=== PATIENT | female | born 1995 | race Caucasian/White ===

== ENCOUNTER 2017-06-28 23:27 | Outpatient (CLI) | payer OTHER ==
[~2017-06-28] VITALS: Ht 165.1 cm; Wt 65.0 kg
[~2017-06-28 23:27] MED LIST: BCPILLS PO
[2017-06-29] MEDS ORDERED: PRENTAB26 PO (00:12)
[2017-06-29 00:13] VITALS: Ht 165.1 cm; Wt 65.0 kg
--- NOTE | 2017-06-30 12:59 | EDITING REQUIRED CODING QUERY ---
DIAGNOSIS NEEDED To promote full compliance with coding requirements relating to patient care, physician participation is requested in all cases of computer language coder uncertainty. Please assist us with the question(s) below: Coding Question: The patient received care in labor and delivery on 06/28/17 as noted within the record. Please document the diagnosis that is being addressed by the medication/treatment. Provider Response: DIAGNOSIS: rule out ruptured membrtanes Thank you for your assistance, Kita Gonzalez - Data Entry Associate
== END 2017-06-29 00:28 | disposition home or self-care (01) ==
LOC: C.LD 23:27 → C.OPB 23:27
PROVIDERS: ATTEND Obstetrics & Gynecology
DX: Z34.83 Encounter for supervision of other normal pregnancy, third trimester (principal); Z3A.36 36 weeks gestation of pregnancy

== ENCOUNTER 2017-07-23 00:20 | Inpatient (IN) | payer OTHER ==
[~2017-07-23] VITALS: Ht 165.1 cm; Wt 67.5 kg
[~2017-07-23 00:20] MED LIST changes: -BCPILLS PO; +PRENTAB26 PO
[2017-07-24] MEDS ORDERED: LACTATED RINGER'S 1000ML 500 ML IV PRN ×2 (17:11→22:26)
[2017-07-24] MEDS ORDERED: LACTATED RINGER'S 1000ML 1,000 ML IV PRN (17:11)
[2017-07-24] MEDS ORDERED: OXYTOCIN 30 UNITS/500ML NSS IV PRN (17:15)
[2017-07-24 18:57] LABS: HEMATOCRIT 31.9 % (37-47); MEAN CELL VOLUME 84.4 fL (80-100); MEAN CORPUSCULAR HGB CONC 33.2 g/dl (32-36); MEAN PLATELET VOLUME 10.6 fL (7.4-10.4); PLATELET COUNT 218 K/uL (130-400); RED BLOOD COUNT 3.78 M/uL (4.2-5.4); WHITE BLOOD COUNT 9.42 K/uL (4.8-10.8)
[2017-07-24] MEDS: LACTATED RINGER'S 1000ML 1,000 ML IV SCH ×2 (19:12→22:23)
[2017-07-24 20:01] VITALS: Ht 165.1 cm; Wt 67.5 kg
[2017-07-24] MEDS ORDERED: FENTANYL CITRATE INJ 50 MCG/1 ML 2 ML VIAL ONE (21:15)
[2017-07-24] MEDS ORDERED: EpHEDrine SULFATE INJ 50 MG/ML AMP ONE (21:15)
[2017-07-24] MEDS ORDERED: BUPIVACAINE 0.25% 30 ML VIAL ONE (21:15)
[2017-07-24] MEDS ORDERED: FENTANYL 2MCG/ML ROPIV 1.25MG/ML 100ML BAG EPI ONE (21:15)
[2017-07-24] MEDS ORDERED: NALOXONE HCL INJ 1 MG in SODIUM CHLORIDE 0.9% 1000ML 1,000 ML IV PRN (22:26)
[2017-07-24] MEDS ORDERED: FENTANYL 2MCG/ML ROPIV 1.25MG/ML 100ML BAG EPI PRN (22:30)
[2017-07-24] MEDS ORDERED: DiphenhydrAMINE HCL 50 MG/ML VIAL IV PRN (22:30)
[2017-07-24] MEDS ORDERED: NALOXONE HCL INJ 0.4 MG/1 ML VIAL/CARP IV PRN (22:30)
[2017-07-24] MEDS ORDERED: EpHEDrine SULFATE INJ 50 MG/ML AMP IV PRN (22:30)
[2017-07-24] MEDS ORDERED: NALBUPHINE HCL INJ 10 MG/ML AMP IV PRN (22:30)
[2017-07-25] MEDS ORDERED: OXYCODONE/ACETAMINOPHEN 5-325 TAB PO PRN (01:15)
[2017-07-25] MEDS ORDERED: SUPERCREAM 0.870 % 15GM JAR EXT PRN (01:15)
[2017-07-25] MEDS ORDERED: ACETAMINOPHEN 325 MG TAB PO PRN (01:15)
[2017-07-25] MEDS ORDERED: HYDROCORTISONE ACETATE 25 MG SUPP PR PRN (01:15)
[2017-07-25] MEDS ORDERED: ACETAMINOPHEN/CODEINE 300/30MG TAB PO PRN ×2 (01:15)
[2017-07-25] MEDS ORDERED: MISOPROSTOL 200 MCG TAB PR SCH (01:15)
[2017-07-25] MEDS ORDERED: OXYTOCIN 30 UNITS/500ML NSS IV PRN (01:15)
[2017-07-25] MEDS ORDERED: LANOLIN OINT EXT PRN ×2 (01:15)
[2017-07-25] MEDS ORDERED: BENZOCAINE 20% AER SPR 82.5 GM CAN EXT PRN (01:15)
--- NOTE | 2017-07-25 03:02 | Anesthesia Procedure Note ---
Anesthesia Epidural Removal Nt Date & Time Jul 25, 2017 at 03:01 Vital Signs Pain Intensity: 9.0 Notes Mental Status: alert / awake / arousable, participated in evaluation Nausea / Vomiting: adequately controlled Pain: adequately controlled Airway Patency, RR, SpO2: stable & adequate BP & HR: stable & adequate Hydration State: stable & adequate Neuraxial Anesthesia: was administered Anesthetic Complications: no major complications apparent, pt satisfied with anesthetic care Epidural: removed without complications, with tip intact
[2017-07-25 04:45] VITALS: BP 92/54; PULSE 61; TEMP 36.7
--- NOTE | 2017-07-25 07:09 | DELIVERY SUMMARY ---
DATE OF OPERATION: 07/25/2017 The patient delivered a live infant female in occiput anterior presentation with left hand compound presentation. There was no nuchal cord. was delivered spontaneously. Infant was placed on mother's abdomen. Cord was clamped and cut after 1 minute of delayed cord clamping. Cord blood was obtained. Placenta was spontaneously delivered. Inspection of the placenta showed a 3-vessel cord. Placenta appeared grossly normal. Inspection of the perineum showed a first-degree midline laceration which was repaired with 3-0 Vicryl. ESTIMATED BLOOD LOSS: 500 mL. Rectal exam post repair showed good sphincter tone. There are no sutures palpated in the rectum. All instruments are removed from the vagina and accounted for x2. Baby's weight is pending, Apgars 8 and 9. Baby and mother are doing well in recovery. I attest to the content of the Intraoperative Record and any orders documented therein. Any exception s are noted below.
--- NOTE | 2017-07-25 07:35 | HISTORY & PHYSICAL EXAMINATION ---
DATE OF ADMISSION: 07/24/2017 CHIEF COMPLAINT: Induction for poor testing. HISTORY OF PRESENT ILLNESS: This is a 21-year-old G2, P1, due date 07/23/2017 making her 40 weeks and 1 day on 07/24/2017. The patient was seen in office for routine care because she was post-EDC. She underwent NST and HUGO. HUGO was 13.9. Her NST was reactive until the end of the NST where the patient experienced deceleration to the 90s. Biophysical profile was 6/8. There was no bleeding. Decision was therefore made to send the patient to our labor and delivery for induction of labor. While in labor and delivery she had no shortness of breath, no chills, no fever, no rupture of membranes. NST repeated on labor and delivery was category 1. She was 4 cm, 50% and -3. I discussed the new NST with the patient and we offered her induction and she agreed to undergo labor induction. Course has been unremarkable until visit on 07/24/2013. LABS: Blood type A positive, antibody negative, rubella immune, GBS negative. PAST MEDICAL HISTORY: 1. History of genital herpes started on 36 weeks. 2. The patient is a smoker. 3. History of strabismus. PAST SURGICAL HISTORY: None. ALLERGIES: No known drug allergies. SOCIAL HISTORY: Smoker. Nonalcohol user, nondrug user. FAMILY HISTORY: Noncontributory. ONLINE SERVICES MANAGER HISTORY: The patient delivered a live male in July 2014. weighed 7 pounds 8 ounces. PHYSICAL EXAMINATION: GENERAL: Well-developed, well-nourished white female in no acute distress. HEART: S1, S2, regular rhythm and rate. LUNGS: Clear to auscultation bilaterally. ABDOMEN: Gravid. PELVIC EXAM: 4 cm, 50% effaced, and -3. Internal vaginal exam shows cephalic presentation. EXTREMITIES: No cyanosis, clubbing or edema. ASSESSMENT AND PLAN: 21-year-old G2, P1 at 40+ weeks for testing. The patient is offered induction and has agreed. Plan is to start induction of labor for reasons described above.
[2017-07-25 07:55] VITALS: BP 100/62; PULSE 59; TEMP 36.9; O2SAT 98
[2017-07-25] MEDS: DOCUSATE SODIUM 100 MG CAP PO SCH ×2 (08:24→21:06)
[2017-07-25] MEDS: FERROUS SULFATE 325 MG TAB PO SCH (08:24)
[2017-07-25] MEDS: PRENATAL VITAMIN TAB PO SCH (08:24)
[2017-07-25 11:20] VITALS: BP 111/74; PULSE 61; TEMP 37
[2017-07-25 16:00] VITALS: BP 100/63; PULSE 58; TEMP 37
[2017-07-25 19:45] VITALS: PULSE 66; TEMP 36.6
[2017-07-25] MEDS: IBUPROFEN 600 MG TAB PO PRN (21:14)
[2017-07-26 00:10] VITALS: BP 109/64; PULSE 58; TEMP 37
--- NOTE | 2017-07-26 08:18 | OB/GYN Progress Note ---
SORTING AND FOLDING SUPERVISOR Progress Note Date of Service: Jul 26, 2017. Patient is seen and examined. She feels well, no complaints. Likes to go home Ambulating without dizziness Voiding without difficulty Tolerating regular diet with out N&V Bleeding is minimal No fever/ chills/ CP/ SOB/ N&V/ Leg pain Bottle feeding without problems Date Time Temp Pulse Resp B/P (MAP) Pulse Ox O2 Delivery O2 Flow Rate FiO2 07/26/17 00:10 37.0 58 16 109/64 (79) Room Air 07/26/17 00:10 Room Air 07/25/17 19:45 36.6 66 16 07/25/17 16:00 37.0 58 16 100/63 (75) Room Air 07/25/17 16:00 Room Air 07/25/17 11:20 37.0 61 20 111/74 (86) Room Air Test 06/29/17 00:23 07/24/17 18:02 Amniotic Fluid Protein NEG White Blood Count 9.42 Red Blood Count 3.78 L Hemoglobin 10.6 L Hematocrit 31.9 L Mean Corpuscular Volume 84.4 Mean Corpuscular Hemoglobin 28.0 Mean Corpuscular Hemoglobin Concent 33.2 RDW Standard Deviation 40.1 RDW Coefficient of Variation 13.1 Platelet Count 218 Mean Platelet Volume 10.6 H PE: General: Alert, orientedx3, NAD Abd: soft, NT, fundus firm, below Umbilicus Perineum intact, Lochia rubra minimal Ext; NT, no edema AP: 21 yo s/p , ppd# 1 VSS Afebrile doing well Continue routine care Desires to be d/c'd today Instructions were given when to call All questions were answered D/C home after labs
[2017-07-26] MEDS ORDERED: FRRS300 PO (08:19)
[2017-07-26 08:20] VITALS: BP 104/70; PULSE 57; TEMP 36.6
--- NOTE | 2017-07-26 08:20 | Discharge Instructions ---
Discharge Instructions Date of Service Jul 26, 2017. Admission Reason for Admission: IUP Discharge Discharge Diagnosis / Problem: Discharge Goals Goal(s): Routine recovery after delivery Medications Continue Dispensed Medications: lansinoh Activity Recommendations Activity Limitations: as noted below Lifting Limitations: gradually increase as tolerated Exercise/Sports Limitations: until after follow-up appointment May Resume Sexual Activity: after follow-up appointment Shower/Bathe: no limitations Driving or Machine Use: ACTIVITY RECOMMENDATIONS: * Gradual return to full activity over the next 2-3 weeks. * No lifting - nothing heavier than baby over the next 2-3 weeks. * Do not engage in vigorous exercise, sexual activity or sports until cleared by your physician. * Do not drive or operate any motorized equipment until cleared by your physician. * You may shower/bathe daily. BREAST CARE: If you are not breast feeding: * Wear a supportive bra 24 hours a day for one to two weeks. * Avoid stimulating your breasts and nipples as much as possible during the first few weeks after delivery. * When taking a shower, have the warm water hit your back, not breasts. * When your breasts feel full, apply ice packs. Usually three to four times a day helps ease the discomfort. * Take a mild pain medication (Tylenol/Motrin) when you are uncomfortable. If breast feeding: * Use breast milk to lubricate nipples. Lansinoh cream may be used for sore nipples. You do not need to remove cream prior to breast feeding. If using a different brand of cream, check the label for directions regarding removal of cream prior to nursing. * Wear a supportive bra. * If having problems with breasts or breast feeding, call a is consultant or your health care provider. EPISIOTOMY CARE: After delivery, if you have an episiotomy (stitches), the following steps will ease discomfort and aid healing. * For the first 24 hours after delivery, place ice packs next to your episiotomy to help reduce swelling. * After the first 24 hour-period, sitz baths, either portable or in the tub, are suggested. A shower with a shower arm sprayed over the episiotomy may be comforting. * Jolene care should be done after each voiding and bowel movement. Squirt warm water from a plastic bottle over the perineum (region of the body between the anus and urinary opening) and pat dry. * Use Dermoplast to ease discomfort. Shake container. Remus directly over the episiotomy. * Place a Tucks on a clean sanitary pad next to your episiotomy. OVER THE COUNTER MEDICATION: * For discomfort or pain, you may use Acetaminophen (Tylenol), Ibuprofen (Advil ), or Naproxen (Aleve) following the package directions. * For constipation you may use Colace following the package directions. SPECIAL CARE INSTRUCTIONS: When you are discharged from the hospital, it is important for you to follow the instructions listed below: * During the first week at home, you should be able to care for yourself and your baby. In addition, the usual light household activities are encouraged. * Limit your activities to the way you feel. Do not try to clean the house or move furniture. Be sensible. * If you actively engage in sports and have done so up until the time of your delivery, you may resume these activities as soon as you feel able. This may take up to one month or even longer. Use good judgment. * Continue to take your vitamins for at least six weeks after the of your baby. * Your diet need not be limited unless you were on a special diet before your delivery. Breast-feeding mothers need around 2500 calories per day and at least 64-80 ounces of fluid per day (8 to 10 glasses). * You should eat foods from the four major food groups. Crash diets or fad diets are to be avoided. Eating lean meats, fresh fruits and vegetables, low-fat dairy products, high fiber foods and a regular exercise program, will help you get back to your pre- weight without putting your health at risk. * Constipation is sometimes a problem after delivery. Take a mild laxative as needed. If breast feeding, Milk of Magnesia is acceptable to use. You may use a suppository or Fleets enema if no episiotomy. * A daily shower or tub bath is suggested. Be sure to thoroughly and gently dry the perineum. * A bloody vaginal discharge will usually continue until around four weeks post . A small amount of bleeding may continue for as long as six weeks. Vaginal discharge changes from the bright red bleeding after delivery to pink then brownish and finally yellowish-pink before becoming white and disappearing. * Bleeding may increase with activity. Your first period may come in 4-8 weeks. If you are breast feeding, your period may be delayed even longer. * Wenonah (sex) can begin whenever both you and your partner feel comfortable and do not have any form of genital infection. It is recommended that you wait until after your return appointment and discuss with your physician. If you have questions, please talk to your health care practitioner. A condom should be used to prevent infection and . * Foreplay, gentle intercourse and lubrication is very important the first several times to prevent pain. A water-based lubricant such as K-Y jelly or Astroglide may be used. * Tampons may be used six weeks after delivery. * Douching should be avoided for 6 weeks after delivery. * If you have RH negative blood and your baby is RH positive, you will receive RHOGAM by injection prior to discharge. The nurse will give you a card to keep with you that has the date and place that you received RHOGAM after delivery. * During your care, you had a Rubella screen done to check for the presence of rubella antibodies in your blood. If your test was negative, you will receive a Rubella vaccine prior to discharge. This vaccine may cause a fever, soreness at the injection site and flu-like symptoms. If these symptoms persist, notify your health care practitioner. is not advised for three months after a Rubella vaccine. There is a higher chance of having a baby with defects if conceived within three months of getting the vaccine. * If you were discharged 24 hours from delivery or before 48 hours: Visiting nurses will come to your home 48 hours after discharge to assess you and your baby. The visiting nurse will meet with you while you are in the hospital to arrange a time and get directions to your home. * Verbalizes understanding of car seat law as reviewed with patient nursing. * Car Seat hand-out given and reviewed with patient by nursing. * Shaken baby information reviewed with patient by nursing. Call you doctor if: * Heavy bleeding (saturating several pads an hour) or passing clots the size of your fist. * A fever >101 degrees F (38.3 degrees C) on two occasions four hours apart and/or chills. * Unusual pain in the pelvic or vaginal areas. * "Baby Blues" lasting longer than two weeks. If you have any questions or concerns, call your health care practitioner at . FOLLOW-UP VISIT: * Please call the office at to schedule a 6 week examination. It is important you keep this appointment. * It is important for you to make arrangements for either yearly or twice yearly check-ups thereafter. . Current Hospital Diet Patient's current hospital diet: Regular OB Diet Discharge Diet Recommended Diet: Regular Diet Pending Studies Studies pending at discharge: no Medical Emergencies . Who to Call and When: Medical Emergencies: If at any time you feel your situation is an emergency, please call 911 immediately. . Non-Emergent Contact Non-Emergency issues call your: Surgeon Call Non-Emergent contact if: temperature is above 100.5, your pain is not controlled, your pain is worsening . . "Provider Documentation" section prepared by Rehana Cristina. . VTE Core Measure Inpt VTE Proph given/why not?: Treatment not indicated
[2017-07-26 08:40] LABS: HEMATOCRIT 32.7 % (37-47); MEAN CELL VOLUME 84.9 fL (80-100); MEAN CORPUSCULAR HGB CONC 31.8 g/dl (32-36); MEAN PLATELET VOLUME 9.7 fL (7.4-10.4); PLATELET COUNT 203 K/uL (130-400); RED BLOOD COUNT 3.85 M/uL (4.2-5.4); WHITE BLOOD COUNT 10.19 K/uL (4.8-10.8)
[2017-07-26 09:31] LABS: BASO % 0.4 %; BASO ABS # 0.04 K/uL (0-0.2); COMPLETE YES; EOS % 1.3 %; IG% 0.8 %; LYMPH % 27.5 %; MONO % 7.3 %; NEUT % 62.7 %
[2017-07-26] MEDS: DOCUSATE SODIUM 100 MG CAP PO SCH (09:32)
[2017-07-26] MEDS: FERROUS SULFATE 325 MG TAB PO SCH (09:32)
[2017-07-26] MEDS: PRENATAL VITAMIN TAB PO SCH (09:32)
[2017-07-26] MEDS: IBUPROFEN 600 MG TAB PO PRN (09:35)
[2017-07-26 10:19] VITALS: BP_DIAS 70; PULSE 57; TEMP 36.6
[2017-07-26] MEDS ORDERED: BISACODYL 5 MG TABEC PO SCH (20:00)
[2017-07-27] MEDS ORDERED: BISACODYL 10 MG SUPP PR PRN (07:00)
== END 2017-07-26 14:32 | disposition home or self-care (01) | DRG 775 ==
LOC: C.LD 07-24 16:45 → C.OBG 07-25 04:12
PROVIDERS: ADMIT Obstetrics & Gynecology; ATTEND Obstetrics & Gynecology
PROC: 10E0XZZ Delivery of Products of Conception, External Approach (ICD-10-PCS; principal; 2017-07-25)
PROC: 3E033VJ Introduction of Other Hormone into Peripheral Vein, Percutaneous Approach (ICD-10-PCS; principal; 2017-07-25)
PROC: 0HQ9XZZ Repair Perineum Skin, External Approach (ICD-10-PCS; principal; 2017-07-25)
DX: O28.3 Abnormal ultrasonic finding on antenatal screening of mother (principal); O70.0 First degree perineal laceration during delivery; Z87.891 Personal history of nicotine dependence; Z37.0 Single live birth; Z3A.40 40 weeks gestation of pregnancy

== ENCOUNTER 2018-03-08 17:02 | Observation (INO) | payer OTHER ==
[~2018-03-08] VITALS: Ht 165.1 cm; Wt 61.0 kg
[~2018-03-08 17:02] MED LIST changes: +FRRS300 PO
[2018-03-08] MEDS ORDERED: SODIUM CHLORIDE 0.9% 1000ML 1,000 ML IV ONE (18:00)
[2018-03-08 18:16] LABS: BASO % 0.5 %; BASO ABS # 0.04 K/uL (0-0.2); EOS % 1.2 %; EOS ABS # 0.09 K/uL (0-0.5); HEMATOCRIT 29.8 % (37-47); HEMOGLOBIN 10.3 g/dL (12.0-16.0); IG# 0.02 K/uL (0.00-0.02); LYMPH % 35.4 %; LYMPH ABS # 2.64 K/uL (1.2-3.4); MEAN CELL VOLUME 87.4 fL (80-100); MEAN CORPUSCULAR HEMOGLOBIN 30.2 pg (25-34); MEAN CORPUSCULAR HGB CONC 34.6 g/dl (32-36); MEAN PLATELET VOLUME 9.7 fL (7.4-10.4); MONO % 5.2 %; MONO ABS # 0.39 K/uL (0.11-0.59); NEUT % 57.4 %; NEUT ABS # 4.27 K/uL (1.4-6.5); PLATELET COUNT 279 K/uL (130-400); RED CELL DISTRIBUTION WIDTH CV 13.1 % (11.5-14.5); RED CELL DISTRIBUTION WIDTH SD 42.2 fL (36.4-46.3); WHITE BLOOD COUNT 7.45 K/uL (4.8-10.8)
[2018-03-08 18:34] LABS: CALCIUM 8.6 mg/dl (8.5-10.1); CREATININE 0.74 mg/dl (0.60-1.20); POTASSIUM 3.7 mmol/L (3.5-5.1)
[2018-03-08 18:37] LABS: TOTAL PROTEIN 7.4 gm/dl (6.4-8.2)
--- NOTE | 2018-03-08 19:27 | DIAGNOSTIC IMAGING REPORT ---
EXAMINATION: PELVIC ULTRASOUND CLINICAL HISTORY: chemical 2 wks ago heavy bleeding COMPARISON STUDY: None FINDINGS: The uterus measured 10.9 x 5.5 x 5.8 cm. The endometrial stripe measured the endometrium is thickened heterogeneous and demonstrates increased vascular flow. The findings are suggestive of retained products of conception.. There is a complex fluid collection within the lower uterine segment/vagina measuring 52 x 24 x 49 mm. This likely represents hemorrhage. The right ovary measured 34 x 19 x 20 mm. The left ovary measured 31 x 21 x 22 mm. There is no ultrasonographic evidence of ovarian torsion. It should be noted that ovarian torsion can be present with normal Doppler ultrasonographic findings. There was no evidence of pathologic free pelvic fluid. IMPRESSION: 1. Thickened heterogeneous hypervascular endometrium, suggestive of retained products of conception. 2. Complex fluid collection within the lower uterine segment/vagina, consistent with hemorrhage 3. Normal ovaries Electronically signed by: Brett Cunningham M.D. 03/08/2018 7:26 PM Dictated Date/Time: 03/08/2018 7:20 PM
[2018-03-08] MEDS ORDERED: MISOPROSTOL 200 MCG TAB ONE (21:56)
[2018-03-08] MEDS ORDERED: METHYLERGONOVINE MALEATE 0.2 MG/ML AMP ONE (21:57)
[2018-03-08] MEDS ORDERED: LACTATED RINGER'S 1000ML 1,000 ML IV SCH (22:03)
[2018-03-08] MEDS ORDERED: MISOPROSTOL 200 MCG TAB PR ONE (22:15)
--- NOTE | 2018-03-08 22:18 | EMERGENCY ROOM VISIT NOTE ---
History First contact with patient: 17:24 Chief Complaint: VAGINAL BLEEDING Stated Complaint: ON AND OFF HEAVY BLEEDING,SOMETIMES MAJOR CLOTTING History of Present Illness The patient is a 22 year old female who presents to the Emergency Room with complaints of heavy vaginal bleeding for the last week. The patient reports having a chemical 2 weeks ago. She initially had significant bleeding. It eased up earlier this week. She saw her [facility] doctor for follow- up 4 days ago. An ultrasound and blood work were performed. She was not told any abnormalities with the ultrasound, however she was told that her hCG level was 9300. The heavy bleeding started again yesterday. She reports passing clots the size of her hand. She is now feeling lightheaded, dizzy and weak. She denies any abdominal pain. The patient is A1 Review of Systems 10 system review performed and negative unless noted in HPI or below Past Medical/Surgical History Medical Problems: (1) Incomplete (2) Otherwise healthy Social History Smoking Status: Former Smoker Housing Status: lives with family Current/Historical Medications No Active Prescriptions or Reported Meds Physical Exam Vital Signs Date Time Temp Pulse Resp B/P (MAP) Pulse Ox O2 Delivery O2 Flow Rate FiO2 03/08/18 21:48 69 18 114/46 99 03/08/18 19:49 67 18 100/47 100 03/08/18 17:09 36.6 102 17 130/74 99 Room Air Physical Exam VITALS: Vitals are noted on the nurse's note and reviewed by myself. Vital signs stable. GENERAL: 22-year-old female, pale in appearance,, SKIN: The skin was without rashes, erythema, edema, or bruising. HEAD: Normocephalic atraumatic. MOUTH: Mucous membranes moist. NECK: Supple without nuchal rigidity. No lymphadenopathy. Cervical spine is nontender. No JVD. HEART: Regular rate and rhythm without murmurs gallops or rubs. LUNGS: Clear to auscultation bilaterally without wheezes, rales or rhonchi. No accessory muscle use. ABDOMEN: Positive bowel sounds x 4.Soft, nontender, without organomegaly. No guarding or rebound tenderness. MUSCULOSKELETAL: No muscle atrophy, erythema, or edema noted. Strength 5/5 throughout. NEURO: Patient was alert and oriented to person place and time. Normal sensation to touch. No focal neurological deficits. Medical Decision & Procedures Laboratory Results 03/08/18 17:50 Red Blood Count 3.41, Mean Corpuscular Volume 87.4, Mean Corpuscular Hemoglobin 30.2, Mean Corpuscular Hemoglobin Concent 34.6, Mean Platelet Volume 9.7, Neutrophils (%) (Auto) 57.4, Lymphocytes (%) (Auto) 35.4, Monocytes (%) (Auto) 5.2, Eosinophils (%) (Auto) 1.2, Basophils (%) (Auto) 0.5, Neutrophils # (Auto) 4.27, Lymphocytes # (Auto) 2.64, Monocytes # (Auto) 0.39, Eosinophils # (Auto) 0.09, Basophils # (Auto) 0.04 03/08/18 17:50 Test 03/08/18 17:50 White Blood Count 7.45 K/uL (4.8-10.8) Red Blood Count 3.41 M/uL (4.2-5.4) Hemoglobin 10.3 g/dL (12.0-16.0) Hematocrit 29.8 % (37-47) Mean Corpuscular Volume 87.4 fL (80-100) Mean Corpuscular Hemoglobin 30.2 pg (25-34) Mean Corpuscular Hemoglobin Concent 34.6 g/dl (32-36) Platelet Count 279 K/uL (130-400) Mean Platelet Volume 9.7 fL (7.4-10.4) Neutrophils (%) (Auto) 57.4 % Lymphocytes (%) (Auto) 35.4 % Monocytes (%) (Auto) 5.2 % Eosinophils (%) (Auto) 1.2 % Basophils (%) (Auto) 0.5 % Neutrophils # (Auto) 4.27 K/uL (1.4-6.5) Lymphocytes # (Auto) 2.64 K/uL (1.2-3.4) Monocytes # (Auto) 0.39 K/uL (0.11-0.59) Eosinophils # (Auto) 0.09 K/uL (0-0.5) Basophils # (Auto) 0.04 K/uL (0-0.2) RDW Standard Deviation 42.2 fL (36.4-46.3) RDW Coefficient of Variation 13.1 % (11.5-14.5) Immature Granulocyte % (Auto) 0.3 % Immature Granulocyte # (Auto) 0.02 K/uL (0.00-0.02) Prothrombin Time 10.0 SECONDS (9.0-12.0) Prothromb Time International Ratio 1.0 (0.9-1.1) Activated Partial Thromboplast Time 27.0 SECONDS (21.0-31.0) Partial Thromboplastin Ratio 1.0 Urine Color RED Urine Appearance TURBID (CLEAR) Urine pH 7.5 (4.5-7.5) Urine Specific [place] >= 1.030 (1.000-1.030) Urine Protein 2+ (NEG) Urine Glucose (UA) NEG (NEG) Urine Ketones NEG (NEG) Urine Occult Blood 2+ (NEG) Urine Nitrite NEG (NEG) Urine Bilirubin NEG (NEG) Urine Urobilinogen NEG (NEG) Urine Leukocyte Esterase NEG (NEG) Urine RBC >30 /hpf (0-4) Urine WBC 5-10 /hpf (0-5) Urine Epithelial Cells 10-20 /lpf (0-5) Urine Bacteria NEG (NEG) Anion Gap 7.0 mmol/L (3-11) Est Creatinine Clear Calc Drug Dose 105.5 ml/min Estimated GFR () 131.4 Estimated GFR (Non- 113.4 BUN/Creatinine Ratio 9.4 (10-20) Calcium Level 8.6 mg/dl (8.5-10.1) Total Bilirubin 0.2 mg/dl (0.2-1) Aspartate Amino Transf (AST/SGOT) 10 U/L (15-37) Alanine Aminotransferase (ALT/SGPT) 15 U/L (12-78) Alkaline Phosphatase 58 U/L (45-117) Total Protein 7.4 gm/dl (6.4-8.2) Albumin 4.0 gm/dl (3.4-5.0) Globulin 3.4 gm/dl (2.5-4.0) Albumin/Globulin Ratio 1.2 (0.9-2) Human Chorionic Gonadotropin, Quant 5619 mIU/mL Medications Administered Medications (Trade) Dose Ordered Sig/Gordon Route Start Time Stop Time Status Last Admin Dose Admin Sodium Chloride 1,000 ml @ 999 mls/hr Q1H1M ONCE IV 03/08/18 18:00 03/08/18 19:00 DC 03/08/18 18:23 999 MLS/HR ED Course Patient was seen and examined Vital signs including blood pressure were reviewed medications list was verified with patient Labs were obtained, and a saline lock was established The patient declined medication Imaging was performed and reviewed The findings were discussed with the patient I discussed the findings with my supervising physician and subsequently Dr. Thompson from [facility] who agreed to come and evaluate the patient. He performed a pelvic exam at the bedside. The patient was then taken to the OR for a D and C Medical Decision Differential diagnosis: Complete , incomplete , uterine fibroids , heavy menstrual bleeding, anemia, sepsis, endometritis This patient is a 22-year-old female presents to the emergency department complaining of heavy vaginal bleeding in the setting of having a chemical 2 weeks ago. She denies any abdominal pain. On exam, she was pale. Abdomen was benign. H&H is stable. Her ultrasound is consistent with likely retained products of conception and hemorrhage. [facility] was consulted who personally evaluated the patient. The patient will be taken directly to the OR for a D&C This chart was completed in part utilizing [employer] Speech Voice Recognition software. Attempts were made to minimize the grammatical errors, random word insertions, pronoun errors and incomplete sentences. Any formal questions or concerns about the content, text or information contained within the body of this dictation should be directly addressed to the provider for clarification. Consults Consulting Physician: Dr. Thompson Impression Primary Impression: Incomplete Departure Information Prescriptions No Active Prescriptions or Reported Meds Referrals Kerline Jordan (PCP) Patient Instructions My [facility]
[2018-03-08] MEDS ORDERED: FENTANYL CITRATE INJ 50 MCG/1 ML 2 ML VIAL ONE (22:40)
[2018-03-08] MEDS ORDERED: ROCURONIUM BROMID 50MG/5ML SYR ONE (23:05)
[2018-03-08] MEDS ORDERED: KETOROLAC TROMETHAMINE 30 MG/ML VIAL ONE (23:05)
[2018-03-08] MEDS ORDERED: LIDOCAINE HCL 2% 2 ML VIAL (20MG/ML) ONE (23:05)
[2018-03-08] MEDS ORDERED: ONDANSETRON INJ 2 MG/ML 2 ML VIAL ONE (23:05)
[2018-03-08] MEDS ORDERED: SUCCINYLCHOLINE CHLORIDE 20 MG/ML 10 ML VIAL IV ONE (23:05)
[2018-03-08] MEDS ORDERED: DEXAMETHASONE SOD INJ 4 MG/ML VIAL ONE (23:05)
[2018-03-08] MEDS ORDERED: PROPOFOL IV EMULSION 10 MG/ML 20 ML VIAL IV ONE (23:05)
[2018-03-08] MEDS ORDERED: IBUPROFEN 600 MG TAB PO PRN (23:15)
[2018-03-08] MEDS ORDERED: METOCLOPRAMIDE HCL INJ 5 MG/ML 2 ML VIAL IV PRN (23:15)
[2018-03-08] MEDS ORDERED: OXYCODONE/ACETAMINOPHEN 5-325 TAB PO PRN ×2 (23:15)
[2018-03-08] MEDS ORDERED: ONDANSETRON INJ 2 MG/ML 2 ML VIAL IV PRN ×2 (23:15→23:30)
--- NOTE | 2018-03-08 23:16 | [facility] Post Operative Brief Note ---
Immediate Operative Summary Operative Date Mar 08, 2018. Pre-Operative Diagnosis Missed Post-Operative Diagnosis Same as preop Procedure(s) Performed Dilation and Evacuation Ultrasound Guided Surgeon Dr. Thompson Dowel Machine Operator Surgeon(s) None Estimated Blood Loss 20 ml Findings See Below dictated Specimens A. Products of Conception Drains None Anesthesia Type General Complication(s) none Disposition Disposition: Recovery Room / PACU
[2018-03-08] MEDS ORDERED: MTR600X BT (23:18)
--- NOTE | 2018-03-08 23:19 | Discharge Instructions ---
Discharge Instructions Date of Service Mar 08, 2018. Admission Reason for Admission: On And Off Heavy Bleeding,Sometimes Major Clotting Discharge Discharge Diagnosis / Problem: postop Discharge Goals Goal(s): Routine recovery after surgery Activity Recommendations Activity Limitations: as noted below ACTIVITY RECOMMENDATIONS: * Avoid tampons, douching, hot tubs, pools, and intercourse until bleeding has stopped. * May shower as usual. * No strenuous activity for 24-48 hours. After 24-48 hours, you can do anything you feel like doing (driving and sports are okay). RETURN TO SCHOOL/WORK: * You may return to school or work after 24 hours unless specified by your physician. DIET: * Resume previous diet. MEDICATIONS: Resume previous medications unless instructed otherwise by your surgeon. Ibuprofen 200mg 2-3 tablets every 4-6 hours as needed --OR-- Aleve 2 tablets every 8-12 hours as needed for post-operative discomfort Medications are over the counter. Tylenol may be used if above medications are contraindicated or not preferred. Medication should be taken with food or milk. do not take on an empty stomach. SPECIAL CARE INSTRUCTIONS: * Check temperature twice daily for one week. Report any elevation over 101 degrees. * Call office if you experience increased pelvic pain or discomfort not relieved by pain medicine, if you have foul smelling vaginal discharge, if you have bleeding that is heavier than a normal menstrual flow. If you are changing a maxi pad every 1- 2 hours, this is too heavy. vaginal spotting is normal for 1-2 weeks. FOLLOW UP VISIT: Call your doctor's office for a post-operative visit. . Current Hospital Diet Patient's current hospital diet: Discharge Diet Recommended Diet: Regular Diet Procedures Procedures Performed: Dilation and Evacuation Ultrasound Guided Pending Studies Studies pending at discharge: no Medical Emergencies . Who to Call and When: Medical Emergencies: If at any time you feel your situation is an emergency, please call 911 immediately. . Non-Emergent Contact Non-Emergency issues call your: Specialist . . "Provider Documentation" section prepared by Carl Thompson. .
[2018-03-08] MEDS ORDERED: FENTANYL CITRATE INJ 50 MCG/1 ML 2 ML VIAL IV PRN (23:30)
[2018-03-08] MEDS ORDERED: PROMETHAZINE HCL INJ 6.25 MG in SODIUM CHLORIDE 0.9% 50ML 50 ML IV PRN (23:30)
[2018-03-08] MEDS ORDERED: ATROPINE SULFATE 0.1 MG/ML 5ML SYR IV PRN (23:30)
[2018-03-08] MEDS ORDERED: EpHEDrine SULFATE INJ 50 MG/ML AMP IV PRN (23:30)
--- NOTE | 2018-03-08 23:41 | Anesthesiology Progress Note ---
Anesthesia Post Op Note Date & Time Mar 08, 2018 at 23:41 Vital Signs Pain Intensity: 0 Vital Signs Past 12 Hours Date Time Temp Pulse Resp B/P (MAP) Pulse Ox O2 Delivery O2 Flow Rate FiO2 03/08/18 23:35 60 18 109/64 99 Room Air 03/08/18 23:25 63 16 114/68 98 Room Air 03/08/18 23:16 36.2 85 16 110/52 99 Room Air 03/08/18 22:29 68 18 141/59 98 03/08/18 21:48 69 18 114/46 99 03/08/18 19:49 67 18 100/47 100 03/08/18 17:09 36.6 102 17 130/74 99 Room Air Notes Mental Status: alert / awake / arousable, participated in evaluation Pt Amnestic to Procedure: Yes Nausea / Vomiting: adequately controlled Pain: adequately controlled Airway Patency, RR, SpO2: stable & adequate BP & HR: stable & adequate Hydration State: stable & adequate Anesthetic Complications: no major complications apparent
[2018-03-08 23:45] VITALS: BP 96/57; PULSE 83; TEMP 36.5; O2SAT 99; Ht 165.1 cm; Wt 61.0 kg
[2018-03-09] VITALS (9 sets, daily range): BP systolic 85–102; BP diastolic 49–67; PULSE 50–79; TEMP 36.8–37.1; O2SAT 98
[2018-03-09] MEDS: SODIUM CHLORIDE 0.9% 1000ML 1,000 ML IV SCH ×2 (00:41→04:51)
[2018-03-09] MEDS ORDERED: IV FLUIDS COMPLETED PRN (01:15)
--- NOTE | 2018-03-09 01:34 | HISTORY & PHYSICAL EXAMINATION ---
DATE OF ADMISSION: 03/08/2018 A consult was placed by Dr Vail HISTORY OF PRESENT ILLNESS: The patient is a 22-year-old G2, P1 who was 7 weeks and underwent an elective termination on February 20. The patient remembers getting 2 pills, which she took on that day 02/20/18 bleeding. Her bleeding has been on and off. She has bled and passed several blood clots. The bleeding improved until yesterday when the bleeding got worse. She presented to the Emergency Room with complaints of heavy bleeding. She had no shortness of breath, no chills, no fever. The patient was seen in the Emergency Room by physician clinical data assistant and a consult placed. On arrival to the Emergency Room, resting comfortably in bed. She appeared to be in no distress. Hemoglobin is 10.3, hematocrit is 29.8. Ultrasound ordered today through the ER showed a thickened hypervascular endometrium suggestive of retained products of conception. There is free fluid collection seen within the lower segment, which is consistent with hemorrhage. The above ultrasound is reviewed with the patient. PAST MEDICAL HISTORY: None. PAST SURGICAL HISTORY: None. SOCIAL HISTORY: The patient denies tobacco, drug or alcohol use. FAMILY HISTORY: Noncontributory. PHYSICAL EXAMINATION: VITAL SIGNS: Temperature is 36.6, pulse is 67, respirations 18, blood pressure is 100/47. HEART: S1, S2, regular rhythm and rate. LUNGS: Clear to auscultation bilaterally. ABDOMEN: Nontender, nondistended, no guarding, no rebound. PELVIC: The patient had moderate amount of blood in the vagina vault. Cervix appears open. EXTREMITIES: No cyanosis, clubbing, edema. ASSESSMENT AND PLAN: A 22-year-old G2, P1 at 7 weeks . The patient had an elective termination of with medication. She appears to be having heavy bleeding. There were retained products seen on ultrasound. I offered patient to continue medical treatment versus expected management versus dilation and evacuation under ultrasound guidance. The patient has agreed to undergo dilation and evacuation under ultrasound guidance. Consent is signed. We have discussed risks of surgery including infection, bleeding, damage to the vagina, uterus, bladder, bowel, and other adjacent structures. The patient understands the risks and signed consent. We would therefore proceed with surgery. SOCORRO
[2018-03-09] MEDS ORDERED: NURSING VERBAL MED ORDER ONE (02:15)
[2018-03-09] MEDS ORDERED: SODIUM CHLORIDE 0.9% 500ML 500 ML IV SCH (02:15)
--- NOTE | 2018-03-09 07:05 | DIAGNOSTIC IMAGING REPORT ---
GUIDANCE INTRAOPERATIVE CLINICAL HISTORY: DILATION AND EVACUATION COMPARISON STUDY: Pelvic ultrasound March 08, 2018. TECHNIQUE: Sonographic guidance was provided for the machine cage maker for Dr. Thompson during dilatation and evacuation. FINDINGS: Endometrial vascularity has diminished since exam of March 08, 2018. The hypoechoic material possibly reflecting blood proximal within the cervix or vagina on exam of January 2018 is no longer visualized. The endometrium is thickened and homogeneous. This is not unexpected. IMPRESSION: Ultrasound guidance for dilatation and evacuation, as described above. Electronically signed by: Bernardo Jimenez M.D. 03/09/2018 7:03 AM Dictated Date/Time: 03/09/2018 7:01 AM
--- NOTE | 2018-03-09 07:40 | OPERATIVE REPORT ---
DATE OF OPERATION: 03/08/2018 INDICATION FOR PROCEDURE: This is a 22-year-old with incomplete , failed medical therapy. PREOPERATIVE DIAGNOSES: 1. Missed at 7 weeks. 2. Failed medical therapy. POSTOPERATIVE DIAGNOSIS: Same. PROCEDURE: Dilation and evacuation of uterus with ultrasound guidance. SURGEON: Dr. Thompson. HERBARIUM CURATOR: None. ESTIMATED BLOOD LOSS: 20 mL. URINE OUTPUT: 150 mL clear urine at the beginning of the procedure. SPECIMEN: Products of conception. ANESTHESIA: General. COMPLICATIONS: None. DRAINS: None. DISPOSITION: Stable to recovery room. PROCEDURE: The patient was taken to the operating room where she was prepped and draped in normal sterile fashion in dorsal lithotomy position. Bladder was catheterized and 150 mL of clear urine was obtained. A weighted speculum was placed in the vagina. Sandoval retractor used to retract the anterior part vagina. Single tooth tenaculum was used to grab the cervix. Cervix was dilated to a size 24. A size 8 curved suction was introduced in the uterine cavity. This was done under ultrasound guidance. Suction curettage was performed. Suction was removed and a sharp #2 curette introduced in the uterine cavity and curettage performed in all 4 quadrants until a gritty texture was obtained. Suction was reintroduced into the uterine cavity. At this time, ultrasound showed there were no more products of conception in the uterus. All instruments were removed from the uterus and the vagina and accounted for x2 including retractors. The patient is sent to recovery in stable condition. I attest to the content of the Intraoperative Record and any orders documented therein. Any exception s are noted below.
== END 2018-03-09 09:40 | disposition home or self-care (01) ==
LOC: C.EDB 17:04 → ENRESERV 22:45 → C.MS4N 23:21 → EEVIPCON 23:21
PROVIDERS: ADMIT Obstetrics & Gynecology; ATTEND Obstetrics & Gynecology
DX: O02.1 Missed abortion (principal)

== ENCOUNTER 2025-03-23 21:15 | Inpatient (IN) ==
--- NOTE | 2025-03-23 22:12 | Emergency Department Note ---
History of Present Illness General Chief complaint: Rash Stated complaint: POISON PATRICK? Time Seen by Provider: 03/23/25 21:31 History of Present Illness This is a 29-year-old female who presents to the emergency department via private vehicle with complaints of "rash". The patient states that [place] was trimming shrubs which was identified as lilac. On Friday morning when she awoke she noted a rash to the bilateral ventral wrists that has now progressed to much of the body. She notes her main concern is on the left side of the face where there is now progressive periorbital edema, erythema. No pain but does note much of the areas are pruritic. The patient does note her daughter that was exposed to similar does have similar symptoms but does not have the facial edema. No trouble breathing or swallowing. No fevers or chills. No nausea or vomiting. Patient denies any immunocompromising conditions. She notes she is otherwise healthy. She notes allergy to bactrim. She notes initially she presented to [facility] and was prescribed prednisone. She then presented to [facility] and was given more prednisone. She presents noting worsening symptoms particularly on the left side of the face. Last dose of prednisone was around 6 PM today as well 25 mg of oral Benadryl. She denies any ocular pain. No vision change. Home Medications Medication Instructions Recorded Confirmed Type buspirone 10 mg tablet 5 mg PO BID PRN Anxiety 03/23/25 03/23/25 History hydroxyzine HCl 25 mg tablet 25 mg PO UD PRN Itching 03/23/25 03/23/25 History prednisone 20 mg tablet 20 mg PO UD 03/23/25 03/23/25 History Allergies Allergy/AdvReac Type Severity Reaction Status Date / Time sulfamethoxazole Allergy Dizziness Verified 03/23/25 22:14 [From Bactrim] trimethoprim [From Bactrim] Allergy Dizziness Verified 03/23/25 22:14 Past Med/Surg History Problem List (Updated 03/23/25 @ 23:18 by Juan Art PA-C) Contact dermatitis (Acute) Periorbital cellulitis (Acute) Depression (Chronic) Medical History Depression No significant past medical history Surgical History No history of previous surgery Social History Smoking Status: Current every day smoker Tobacco Type: E-cigarettes / Vaping Hx Alcohol Use: Yes Alcohol type: other Hx Substance Use: No Preferred Language: [place] Dowel Inspector Required: No Beliefs That Will Affect Care: None Current Living Situation: Family Other Information That Helps Us Care for You: No Feels Safe at Home: Yes Safety Concerns: Feels Safe At This Time Assistive Devices: None Review of Systems A total of 10 systems reviewed and were otherwise negative Physical Exam Vital Signs Vital Signs - 24 hr 03/23/25 21:19 03/23/25 21:27 03/23/25 23:15 Temperature 36.5 C 36.8 C Temperature Source Temporal Artery Scan Oral Pulse Rate 76 Pulse Rate [Right Finger] 70 50 L Respiratory Rate 18 20 18 Respiratory Effort / Characteristics Non-Labored Spontaneous Non-Labored Spontaneous Respiratory Depth Normal Normal Respiratory Pattern Regular Regular Blood Pressure 165/103 H Blood Pressure [Right Arm] 148/104 H 118/90 Blood Pressure Mean 123 Blood Pressure Mean [Right Arm] 118 99 Blood Pressure Position Sitting Blood Pressure Position [Right Arm] Sitting Pulse Oximetry 98 95 96 Oxygen Delivery Method Room Air Room Air Sepsis Recent Fever Within 48 Hours No Sepsis New/Unexplained Change in Mental Status N/A Sepsis Action Taken by Nursing No Action Required VITAL SIGNS - Vital signs and nursing notes were reviewed. Stable and afebrile. GENERAL -29-year-old female appearing her stated age who is in no acute distress. Communicates well with provider and answers questions appropriately. SKIN -slightly raised erythematous rash noted to the ventral wrist region. However most prominent on the face, left side in the periorbital region with surrounding edema. Small amount of involvement on the right side. HEAD - NC/AT. EYES - PERRL with EOMI bilaterally. Sclera anicteric. Palpebral conjunctiva pink and moist with no injection noted. Skin as above. No fluctuance or crepitus. No pain with EOMs. EARS - No deformities of external structures noted on gross examination bilaterally. No pain elicited with palpation of the tragus bilaterally. NOSE - Midline and without cyanosis. No epistaxis or purulent drainage noted. Septum midline without deviation or septal hematoma noted. MOUTH/OROPHARYNX - Without perioral cyanosis. Buccal mucosa pink and moist and without leukoplakia. Tongue midline with equal elevation of palate bilaterally. No tonsillar hypertrophy, erythema, or exudates noted. Good dentition noted. No intraoral lesions. NECK - Neck with FROM. No nuchal rigidity. LUNGS -clear to auscultation. CARDIAC - RRR EXTREMITIES - No clubbing or peripheral cyanosis. +5/5 strength noted in UE/LE bilaterally. NEUROLOGIC - Cranial nerves II through XII grossly intact. PSYCH -alert, oriented and pleasant on exam. Course Administered Medications Discontinued Medications Diphenhydramine HCl (Diphenhydramine 50 Mg/Ml Vial) 25 mg IV NOW STA Stop: 03/23/25 22:15 Last Admin: 03/23/25 22:29 Dose: 25 mg Documented By: COLEMAN Sodium Chloride (Nss) 1,000 mls @ 999 mls/hr IV .Q1H1M ONE Stop: 03/23/25 23:00 Last Infusion: 03/24/25 00:38 Dose: Infused Documented By: Admin: 03/23/25 22:28 Dose: 999 mls/hr Documented By: COLEMAN Famotidine (Pepcid 20mg Iv Push) 20 mg in 5 mls @ 2.5 mls/min IV NOW STA Stop: 03/23/25 22:01 Last Admin: 03/23/25 22:29 Dose: 2.5 mls/min Documented By: COLEMAN Ampicillin Sodium/Sulbactam Sodium (Unasyn) 3,000 mg in 100 mls @ 200 mls/hr IV NOW STA Stop: 03/23/25 22:38 Last Infusion: 03/24/25 00:37 Dose: Infused Documented By: Admin: 03/23/25 22:29 Dose: 200 mls/hr Documented By: COLEMAN Medical Decision Making Laboratory Data 03/23/25 22:21 03/23/25 22:21 Lab Results 03/23/25 Range/Units 22:21 WBC 10.49 (4.8-10.8) K/ul RBC 4.38 (4.20-5.40) M/uL Hgb 13.9 (12.0-16.0) g/dl Hct 39.9 (37.0-47.0) % MCV 91.1 (80.0-100.0) fL MCH 31.7 (25.0-34.0) pg MCHC 34.8 (32.0-36.0) g/dL RDW Std Deviation 43.6 (36.4-46.3) fL RDW Coeff of Lius 13.0 (11.5-14.5) % Plt Count 262 (130-400) K/uL MPV 9.6 (9.4-12.4) fL Immature Gran % (Auto) 0.3 % Neut % (Auto) 68.2 % Lymph % (Auto) 25.4 % Lyman % (Auto) 5.3 % Eos % (Auto) 0.3 % Baso % (Auto) 0.5 % Neut # (Auto) 7.16 H (1.40-6.50) K/uL Lymph # (Auto) 2.66 (1.20-3.40) K/uL Lyman # (Auto) 0.56 (0.11-0.59) K/uL Eos # (Auto) 0.03 (0.00-0.50) K/uL Baso # (Auto) 0.05 (0.00-0.20) K/uL Immature Gran # (Auto) 0.03 (0.01-0.20) K/uL Sodium 139 (136-145) mmol/L Potassium 3.5 (3.5-5.1) mmol/L Chloride 106 (98-107) mmol/L Carbon Dioxide 24 (21-32) mmol/L Anion Gap 9 (3-11) BUN 12 (6-23) mg/dl Creatinine 0.71 (0.6-1.2) mg/dl Est Cr Clr Drug Dosing 105.4 ml/min eGFR 116.51 BUN/Creatinine Ratio 16.9 (10-20) Glucose 93 (70-99(Fasting)) mg/dl Calcium 9.1 (8.6-10.3) mg/dl Total Bilirubin 0.4 (0.2-1.0) mg/dl AST 16 (13-39) U/L ALT 15 (7-52) U/L Alkaline Phosphatase 43 (34-104) U/L Total Protein 7.8 (6.0-8.3) gm/dl Albumin 4.6 (3.4-5.0) gm/dl Globulin 3.2 (2.5-4.0) gm/dl Albumin/Globulin Ratio 1.4 (0.9-2) Procalcitonin < 0.02 (0-0.5) ng/ml HCG, Qual Negative (Negative) MDM Narrative Patient was seen and evaluated as above in room D09. Review was performed of nursing notes and vital signs. I did review pertinent previous visits and patient history. After obtaining a thorough history and physical examination the above work up was performed. Patient presents to us today for evaluation of progressive left-sided facial swelling, erythema with what appeared to be initial contact dermatitis. I am concerned that she is now developing a secondary bacterial infection of the left periorbital region. Despite oral steroids and oral Benadryl the amount of left-sided periorbital edema she notes continues to worsen as does the redness. No fevers. Options of care were discussed with the patient. IV access was established. Labs were drawn. No leukocytosis or concerning anemia. No emergent metabolic disturbance. Pro-Justus negative. hCG negative. IV fluids, IV Pepcid ordered. Patient did have Benadryl 25 mg earlier today, therefore did order another 25 mg IV. She already had 40 mg oral prednisone around 6 PM today. I also ordered IV Unasyn for coverage of left-sided facial cellulitis/periorbital cellulitis. Low suspicion for MRSA at this time. Patient was reevaluated with some improvement of areas particularly those that were consistent with contact dermatitis, however there was still some residual left-sided periorbital erythema and edema which I believe is consistent with the secondary bacterial infection. Remainder of the rash involving the forearms, right side of the face, neck region greatly improved but still visible. Escalation of care considered and I reviewed benefit versus risk of admission with the patient. We are in agreement to proceed. I do believe that further evaluation and management in the inpatient setting is warranted to further treat the left-sided periorbital cellulitis. Case discussed with the hospitalist service. Please refer for the documentation regarding her stay. GCS: 15 In the evaluation and treatment of this patient the following differential diagnoses were entertained: SJS, TENS, facial cellulitis, periorbital cellulitis, orbital cellulitis, abscess, shingles, among others. Impression & Plan Periorbital cellulitis, Contact dermatitis Discharge Plan Visit Data Chief Complaint: Rash Stated Complaint: POISON PATRICK? ED Provider: Marisa San ED Midlevel Provider: Juan Art Discharge Problem: Periorbital cellulitis, Contact dermatitis Patient Disposition: Admitted As Inpatient Condition: Good Discharge Instructions Interventions: ED Discharge Assessment Last Done: 03/24/25 01:16
[2025-03-23] MEDS: SODIUM CHLORIDE 0.9% 1,000 ML IV ONE (22:28)
[2025-03-23] MEDS: AMPICILLIN/SULBACTAM SOD 3,000 MG/100 ML BAG IV STA (22:29)
[2025-03-23] MEDS: FAMOTIDINE 20MG IV PUSH 20 MG/5 ML SYR IV STA (22:29)
[2025-03-23] MEDS: diphenhydrAMINE 50 MG/ML VIAL IV STA (22:29)
[2025-03-23 22:44] LABS: Basophils # (auto) 0.05 K/uL (0.00-0.20); Basophils % (auto) 0.5 %; Eosinophils # (auto) 0.03 K/uL (0.00-0.50); Eosinophils % (auto) 0.3 %; Hematocrit (blood only) 39.9 % (37.0-47.0); Hemoglobin 13.9 g/dl (12.0-16.0); Immature Granulocytes # (auto) 0.03 K/uL (0.01-0.20); Immature Granulocytes % (auto) 0.3 %; Lymphocytes # (auto) 2.66 K/uL (1.20-3.40); Lymphocytes % (auto) 25.4 %; Mean Corpuscular Hemoglobin 31.7 pg (25.0-34.0); Mean Corpuscular Hgb Conc 34.8 g/dL (32.0-36.0); Mean Corpuscular Volume 91.1 fL (80.0-100.0); Mean Platelet Volume 9.6 fL (9.4-12.4); Monocytes # (auto) 0.56 K/uL (0.11-0.59); Monocytes % (auto) 5.3 %; Neutrophils # (auto) 7.16 K/uL (1.40-6.50); Neutrophils % (auto) 68.2 %; Platelet Count 262 K/uL (130-400); RDW Standard Deviation 43.6 fL (36.4-46.3); Red Blood Count 4.38 M/uL (4.20-5.40); White Blood Count 10.49 K/ul (4.8-10.8)
[2025-03-23 22:53] LABS: Albumin Globulin Ratio 1.4 (0.9-2); Albumin Level 4.6 gm/dl (3.4-5.0); BUN Creatinine Ratio 16.9 (10-20); Bilirubin,Total 0.4 mg/dl (0.2-1.0); Calcium 9.1 mg/dl (8.6-10.3); Creatinine Clr Calc Pharmacy 105.4 ml/min; Globulin 3.2 gm/dl (2.5-4.0); Potassium 3.5 mmol/L (3.5-5.1); Total Protein 7.8 gm/dl (6.0-8.3)
[2025-03-23 22:56] LABS: Pregnancy Test, Serum Negative (Negative)
--- NOTE | 2025-03-24 00:07 | History & Physical Report ---
Date of Service March 23, 2025 Assessment & Plan (1) Contact dermatitis: Plan: 29-year-old female with past medical history significant for chronic cystitis, depression, history of recurrent UTI presents with rash. [place] 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 Friday she woke up with rash initially in the wrist region and quickly progressing to her face mostly on the left face and her body. Rash was itching. She went to urgent care and was prescribed prednisone for possible poison maría. Since Friday she is taking prednisone 40 mg and as rash was not getting better and was spreading she took 60 mg prednisone today. She also noticed swelling in the left side of her face and left eye region and she came to the ER. In the ER she was given IV Pepcid and IV Benadryl and and also IV Unasyn for possible cellulitis of the left face and left orbital region. Patient she was also feeling some pressure in her front part of neck but currently resolved. Denies shortness of breath. Denies difficulty swallowing. Denies chest pain. No headache. Vision is okay. No runny nose or sore throat. No nausea. No abdominal pain. Normal bowel and bladder movements. Currently resting comfortably and hemodynamically stable. Contact dermatitis Labs okay Will continue with prednisone 60 mg daily, Zyrtec 10 mg daily and Pepcid 20 mg twice daily and IV Benadryl as needed Monitor for response Possible preorbital cellulitis ER started on Unasyn which will be continued We will monitor response DVT prophylaxis Lovenox Disposition Med/telemetry Full code. History of Present Illness Chief Complaint: Rash Primary Care Provider: Kerline Jordna 29-year-old female with past medical history significant for chronic cystitis, depression, history of recurrent UTI presents with rash. [place] 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 Friday she woke up with rash initially in the wrist region and quickly progressing to her face mostly on the left face and her body. Rash was itching. She went to urgent care and was prescribed prednisone for possible poison maría. Since Friday she is taking prednisone 40 mg and as rash was not getting better and was spreading she took 60 mg prednisone today. She also noticed swelling in the left side of her face and left eye region and she came to the ER. In the ER she was given IV Pepcid and IV Benadryl and and also IV Unasyn for possible cellulitis of the left face and left orbital region. Patient she was also feeling some pressure in her front part of neck but currently resolved. Denies shortness of breath. Denies difficulty swallowing. Denies chest pain. No headache. Vision is okay. No runny nose or sore throat. No nausea. No abdominal pain. Normal bowel and bladder movements. Currently resting comfortably and hemodynamically stable. Past medical history. As mentioned above Past surgical history. No surgical history on file Social history. Quit smoking 2013. Smoked 0.5 pack a day for 40 years. Alcohol 10 Standard drinks of alcohol per week as per [facility]. No drug use Family history. Brother alcoholism Father alcoholism. Sister alcoholism. Brother has allergies. Maternal grandfather had prostate cancer. Paternal gran dfather had cancer. Mother alcoholism, had cervical cancer. Diabetes. Eye problems. Heart disorder. Hypertension. Bipolar multi personality. Obesity. Thyroid disorder. Allergies Allergy/AdvReac Type Severity Reaction Status Date / Time sulfamethoxazole Allergy Dizziness Verified 03/23/25 22:14 [From Bactrim] trimethoprim [From Bactrim] Allergy Dizziness Verified 03/23/25 22:14 Home Medications Medication Instructions Recorded Confirmed Type buspirone 10 mg tablet 5 mg PO BID PRN Anxiety 03/23/25 03/23/25 History hydroxyzine HCl 25 mg tablet 25 mg PO UD PRN Itching 03/23/25 03/23/25 History prednisone 20 mg tablet 20 mg PO UD 03/23/25 03/23/25 History Past Med/Surg History Problem List (Updated 03/23/25 @ 23:18 by Juan Art PA-C) Contact dermatitis (Acute) Periorbital cellulitis (Acute) Depression (Chronic) Medical History Depression No significant past medical history Surgical History No history of previous surgery Social History Smoking Status: Current every day smoker Tobacco Type: E-cigarettes / Vaping Hx Alcohol Use: Yes Alcohol type: other Hx Substance Use: No Preferred Language: Tanzanian 911 Telecommunicator Required: No Beliefs That Will Affect Care: None Current Living Situation: Family Other Information That Helps Us Care for You: No Feels Safe at Home: Yes Safety Concerns: Feels Safe At This Time Assistive Devices: None Review of Systems Review of Systems: All systems reviewed & are unremarkable except as noted in HPI & below Physical Exam Physical Exam: General- Not in distress Head- Swelling around left orbit seen Eyes- PERRL. ENT- oropharynx clear Neck- supple, no JVD. Lungs- clear to auscultation no wheezing or crackles Heart- regular rhythm; no murmur, no gallop. Abdomen- normal bowel sounds, soft, nontender, no distension Extremities- no pretibial edema. Neuro- alert, oriented PERRL, no facial palsy; no dysarthria; moves extre mities. Skin- erythematous rash seen on left side of face with swelling around left orbit. Hives seen on trunk, abdomen and some on legs Results & Data Results & Data Vital Signs (Past 12 Hours) Vital Signs Temp Pulse Pulse Resp BP BP Pulse Ox 03/23/25 21:27 36.8 C 70 20 148/104 H 95 03/23/25 21:19 36.5 C 76 18 165/103 H 98 O2 Del Method 03/23/25 21:27 Room Air 03/23/25 21:19 Room Air Diagnostic Findings Laboratory Results WBC 10.49 K/ul (4.8-10.8) 03/23/25 22:21 RBC 4.38 M/uL (4.20-5.40) 03/23/25 22:21 Hgb 13.9 g/dl (12.0-16.0) 03/23/25 22:21 Hct 39.9 % (37.0-47.0) 03/23/25 22:21 MCV 91.1 fL (80.0-100.0) 03/23/25 22:21 MCH 31.7 pg (25.0-34.0) 03/23/25 22:21 MCHC 34.8 g/dL (32.0-36.0) 03/23/25 22:21 RDW Std Deviation 43.6 fL (36.4-46.3) 03/23/25 22: RDW Coeff of Luis 13.0 % (11.5-14.5) 03/23/25 22:21 Plt Count 262 K/uL (130-400) 03/23/25 22:21 MPV 9.6 fL (9.4-12.4) 03/23/25 22:21 Immature Gran % (Auto) 0.3 % 03/23/25 22:21 Neut % (Auto) 68.2 % 03/23/25 22:21 Lymph % (Auto) 25.4 % 03/23/25 22:21 [place] % (Auto) 5.3 % 03/23/25 22:21 Eos % (Auto) 0.3 % 03/23/25 22:21 Baso % (Auto) 0.5 % 03/23/25 22:21 Neut # (Auto) 7.16 K/uL (1.40-6.50) H 03/23/25 22:21 Lymph # (Auto) 2.66 K/uL (1.20-3.40) 03/23/25 22:21 [place] # (Auto) 0.56 K/uL (0.11-0.59) 03/23/25 22:21 Eos # (Auto) 0.03 K/uL (0.00-0.50) 03/23/25 22:21 Baso # (Auto) 0.05 K/uL (0.00-0.20) 03/23/25 22:21 Immature Gran # (Auto) 0.03 K/uL (0.01-0.20) 03/23/25 22:21 Sodium 139 mmol/L (136-145) 03/23/25 22:21 Potassium 3.5 mmol/L (3.5-5.1) 03/23/25 22:21 Chloride 106 mmol/L (98-107) 03/23/25 22:21 Carbon Dioxide 24 mmol/L (21-32) 03/23/25 22:21 Anion Gap 9 (3-11) 03/23/25 22:21 BUN 12 mg/dl (6-23) 03/23/25 22:21 Creatinine 0.71 mg/dl (0.6-1.2) 03/23/25 22:21 Est Cr Clr Drug Dosing 105.4 ml/min 03/23/25 22:21 eGFR 116.51 03/23/25 22:21 BUN/Creatinine Ratio 16.9 (10-20) 03/23/25 22:21 Glucose 93 mg/dl (70-99(Fasting)) 03/23/25 22:21 Calcium 9.1 mg/dl (8.6-10.3) 03/23/25 22:21 Total Bilirubin 0.4 mg/dl (0.2-1.0) 03/23/25 22:21 AST 16 U/L (13-39) 03/23/25 22:21 ALT 15 U/L (7-52) 03/23/25 22:21 Alkaline Phosphatase 43 U/L (34-104) 03/23/25 22:21 Total Protein 7.8 gm/dl (6.0-8.3) 03/23/25 22:21 Albumin 4.6 gm/dl (3.4-5.0) 03/23/25 22:21 Globulin 3.2 gm/dl (2.5-4.0) 03/23/25 22:21 Albumin/Globulin Ratio 1.4 (0.9-2) 03/23/25 22:21 Procalcitonin < 0.02 ng/ml (0-0.5) 03/23/25 22:21 HCG, Qual Negative (Negative) 03/23/25 22:21 Code Status & VTE Plan VTE Prophylaxis Plan VTE Prophylaxis will be ordered: Yes
[2025-03-24] MEDS ORDERED: busPIRone 5 MG TAB PO PRN (01:47)
[2025-03-24] MEDS ORDERED: diphenhydrAMINE 50 MG/ML VIAL IV PRN (01:47)
[2025-03-24] MEDS ORDERED: ACETAMINOPHEN 325 MG TAB PO PRN (01:47)
--- OUTSIDE RECORDS SUMMARY | 2025-03-24 03:43 | External Medical Summary | Summary of Care ---
Author Name Unknown Organization [facility] Address [address] [place] [facility] [address] Phone [phone] Care Team Providers Care Psychological Aide Name Role Phone Tamika Bonilla PA-C Primary Care Provider [phone] Reason for Visit * Reason Onset Date Comments Medication Refill 10/22/2024 Encounter Details Date Type Department Care Team (Late st Contact Info) Description 10/22/2024 Refill [facility] [address] [place] [address] Tamika Bonilla PA-C [address] [place] [address] Social anxiety disorder Allergies Active Allergy Reactions Criticality Noted Date Comments Sulfamethoxazole-Trimethop rim 11/19/2021 Itching in mouth, hives documented as of this encounter (statuses as of 10/25/2024) Medications Nexplanon 68 MG Subcutaneous Implant (Etonogestrel) Inject 1 Each into the skin once. Active valACYclovir HCl 500 MG Oral Tablet (Valtrex)Indicat ions:HSV-2 infection Take 1 Tablet by mouth in the morning. 30 Tablet 6 3 Active Triamcinolone Acetonide 0.1 % External Cream (Aristocort) 4 Active Blood Pressure KitIndications:E levated blood pressure, situational,FH: HTN (hypertension) Use to monitor blood pressure 1 Kit 1 4 Active Propranolol HCl 10 MG Oral Tablet (Inderal)Indicat ions:Social anxiety disorder Take 1 Tablet by mouth 2 times a day as needed (social anxiety). 20 Tablet 4 Active busPIRone HCl 10 MG Oral Tablet (Buspar)Indicati ons:Social anxiety disorder Take 1 Tablet by mouth in the morning and 1 Tablet before bedtime. 180 Tablet 4 Active busPIRone HCl 10 MG Oral Tablet (Buspar)Indicati ons:Social anxiety disorder Take 1 Tablet by mouth in the morning and 1 Tablet before bedtime. 20 Tablet 4 10/22/20 24 Discontinu ed(Refill) documented as of this encounter (statuses as of 10/25/2024) Active Problems Problem Noted Date Diagnosed Date History of recurrent UTI (urinary tract infectio n) 05/14/2023 Chronic cystitis 05/14/2023 Current moderate episode of major depressive disorder without prior episode 05/26/2021 Advance directive declined by patient 02/27/2017 Overview (02/27/2017): Does the patient have an advance directive? No, Advance Directive brochure offered, patient declined. documented as of this encounter (statuses as of 10/25/2024) Resolved Problems Problem Noted Date Diagnosed Date Resolved Date UTI (urinary tract infection) 01/13/2017 07/25/2017 Overview (01/13/2017): UTI at NOB visit, AWILDA next visit. Supervision of other normal , antepartum 01/02/2017 07/25/2017 Overview (07/22/2017): Problem Action Taken Date entered Entered by Date resolved nutrition WIC info given Due date letter given 03/28/2017 Dolores Murrell RN 03/28/2017 Home nursing/ [facility] declines 03/28/2017 Dolores Murrell RN 03/28/2017 Problem Action Taken Date entered Entered by Date resolved Current needs or questions Patient denies having any current needs or questions 05/23/2017 Barbi Desai RN 05/23/17 Problem Action Taken Date entered Entered by Date resolved Current needs or questions Patient denies having any current needs or questions 06/20/2017 Cristy Murillo RN 06/20/17 Problem Action Taken Date entered Entered by Date resolved Labor instructions given Pt aware of # to call 06/27/2017 Dolores Murrell RN 06/27/2017 Problem Action Taken Date entered Entered by Date resolved Current needs or questions Patient denies having any current needs or questions 07/09/2017 Cristy Murillo RN 07/09/17 Problem Action Taken Date entered Entered by Date resolved Current needs or questions Patient denies having any current needs or questions 07/15/2017 Cristy Murillo RN 07/15/17 Problem Action Taken Date entered Entered by Date resolved Current needs or questions Patient denies having any current needs or questions 07/22/2017 Barbi Desai RN 07/22/17 Uterine size date discrepancy, antepartum 06/13/2014 08/19/2014 Overview (06/27/2014): US ordered-growth normal @ 33wks , normal first 03/03/201408/01 Overview (05/17/2014): Pt received tdap vaccine 05/17/2014 Abby Warner RN Late care 03/03/2014 4 Overview (03/03/2014): Presented for care at 18 weeks Tobacco use in 03/03/2014 Overview (06/27/2014): Smoking 0-3 cigarettes per day at NOB visit. 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/25/2017 Overview (01/02/2017): Consider prophylactic therapy at 36 weeks Routine child health exam 06/08/2002 documented as of this encounter (statuses as of 10/25/2024) Immunizations Name Administration Dates Next Due TDAP (age 10 and older)(Boostrix) 05/17/2014 documented as of this encounter Social History Tobacco Use Types Packs/Day Years Used Date Smoking Tobacco: Former Cigarettes 0.5 4 2 010 - 2013 Passive Smoke Exposure: Past Smokeless Tobacco: Never Comments:Mom is a smoker Alcohol Use Standard Drinks/Week Comments Yes 10 (1 standard drink = 0.6 oz pu re alcohol) ocas AUDIT-C Answer Date Recorded Frequency of Alcohol Consumption 4 or more times a week 04/01/2019 Average Number of Drinks 1 or 2 019 Frequency of Binge Drinking Never 01/2019 PHQ-2 Answer Date Recorded PHQ-2 Score -1 08/21/2020 Hunger Vital Sign Answer Date Recorded Within the past 12 months, y ou worried that your food would run out before you got the money to buy more. Patient declined Within the past 12 months, t he food you bought just didn't last and you didn't have money to get more. Patient declined Childcare Answer Date Recorded Do you feel overwhelmed with taking care of a child, family member or friend? No 09/21/2024 Does your family need help f inding childcare? (Household - for ages 0-17 years) Not on file 09/21/2024 Clothing Answer Date Recorded Have you been unable to get clothing when it was really needed? No 09/21/2024 Is your family able to get c lothes or diapers when needed? (Household - for ages 0-17 years) Not on file 09/21/2024 Personal Safety Answer Date Recorded Do you feel unsafe or have concerns for your saf ety? No 09/21/2024 Do you have concerns for you r family's safety? (Household - for ages 0-17 years) Not on file 09/21/2024 Utilities Answer Date Recorded Do you have trouble paying y our heating, water, or electric bill? No 09/21/2024 Is your family able to pay t he heat, water, or electric bill? (Household - for ages 0-17 years) Not on file 09/21/2024 Does your family have access to good internet? (Household - for ages 0-17 years) Not on file 09/21/2024 Employment Status Answer Date Recorded Are you unemployed or without regular income? No 09/21/2024 Does the household have a re gular source of income? (Household - for ages 0-17 years) Not on file 09/21/2024 Social Connections Answer Date Recorded How often do you feel lonely or isolated from th ose around you? Often 09/21/2024 Financial Resource Strain Answer Date R ecorded Do you have any trouble payi ng for your medications, or do you think you might in the future? No 09/21/2024 Does your family have troubl e paying for medicine? (Household - for ages 0-17 years) Not on file 09/21/2024 Transportation Needs Answer Date Record ed Do you have trouble getting a ride to medical visits or work? (Adult - for ages 18 years and over) Not on file 09/21/2024 Does your family have a hard time getting a ride to doctors visits? (Household - for ages 0-17 years) Not on file 09/21/2024 Has lack of transportation k ept you from medical appointments, meetings, work, or from getting things needed for daily living? Check all that apply. No 09/21/2024 Do you (or your family) have trouble finding or paying for a ride (transportation)? (Household - for ages 0-17 years) Not on file 09/21/2024 Housing Stability Answer Date Recorded Do you currently live in a s helter or have no steady place to sleep at night? No 09/21/2024 Do you think you are at risk of becoming homeless? (Adult - for ages 18 years and over) Not on file 09/21/2024 Does your family worry about paying for your home or becoming homeless? (Household - for ages 0-17 years) Not on file 1 Are you homeless or worried that you might be in the future? No 09/21/2024 Are you (or your family) jason eless or worried that you might be in the future? (Household - for ages 0-17 years) Not on file Food Insecurity Answer Date Recorded Do you need food for this week? No 09/21/2024 Are you able to get enough f ood for your family? (Household - for ages 0-17 years) Not on file 09/21/2024 Does your family need food t his week? (Household - for ages 0-17 years) Not on file 09/21/2024 Do you always have enough fo od for your family? 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 Authorizing Provider: TAMIKA BONILLA * Telephone Encounter - Mahogany Kwong [facility] - 10/25/2024 6:08 AM EST Pending Prescriptions: Disp Refills busPIRone HCl 10 MG Oral Tablet (Buspar) 20 Tab*0 Sig: Take 1 Tablet by mouth in the morning and 1 Tablet before bedtime. Electronically signed by Mahogany Kwong [facility] at 10/25/2024 6:08 AM EST * Telephone Encounter - Mahogany Kwong RP - 10/25/2024 6:08 AM EST Refill pharmacists currently not authorized to approve refills for this class of medication per refill protocol. Please approve if appropriate. Thank you, Mahogany Kwong, PharmD. Clinical Pharmacist Pharmacy Refill Call Center 10/25/2024, 6:08 AM Electronically signed by Mahogany Kwong [facility] at 10/25/2024 6:08 AM EST documented in this encounter Plan of Treatment Health Maintenance Due Date Last Done Comments Depression Monitoring 01/30/2021 01/31/2020 HPV/Co-Test 2023 DTap/Tdap Vaccines (8 - Td or Tdap) 05/17/2024 05/17/2014, 03/07/2005, 10/11/1999, Additional history exists COVID-19 Vaccine ( season) 2024 Influenza Vaccine (FLU shot) (#1) 2024 Cervical Cancer Screening 05/27/2026 Pap Smear 05/27/2026 05/27/2023, 01/2020, 08/21/2016 Hepatitis B Vaccine Completed 09/29/1994, 07/11/1994, 1993 Hepatitis C Screening Completed 07/12/2021 HPV (Gardasil) Vaccine Aged Out No lo nger eligible based on patient's age to complete this topic MENINGOCOCCAL (MENACTRA/MENVEO) Aged Out No longer eligible based on patient's age to complete this topic Pneumococcal Vaccine: Pediatrics (0 to 5 Years) and At-Risk Patients (6 to 64 Years) Aged Out No longer eligible based on patient's age to complete this topic documented as of this encounter Medical Devices Not on filedocumented as of this encounter Visit Diagnoses Diagnosis Social anxiety disorder Social phobia documented in this encounter Care Teams Psychological Aide Relationship Specialty Start Date End Date Tam[facility]-C [address] [facility] [facility] [address] PCP - General Physician Portfolio Strategist 09/13/21 documented as of this encounter
--- OUTSIDE RECORDS SUMMARY | 2025-03-24 03:43 | External Medical Summary | Summary of Care ---
Author Name Unknown Organization [facility] Address [address] [facility] [place] [address] Phone [phone] Care Team Providers Care Pension Administrator Name Role Phone Tamika Bonilla PA-C Primary Care Provider [phone] Reason for Visit * Reason Onset Date Comments Test Results 02/27/2025 Encounter Details Date Type Department Care Team ([facility] st Contact Info) Description [facility] [address] [place] [address] Ana Laura Schmitz CRNP [address] [place] [address] Test Results Allergies Active Allergy Reactions Criticality Noted Date Comments Sulfamethoxazole-Trimethop rim 11/19/2021 Itching in mouth, hives documented as of this encounter (statuses as of 02/27/2025) Medications Nexplanon 68 MG Subcutaneous Implant (Etonogestrel) [...] needed (social anxiety). 20 Tablet 4 Active Additional Information Patient not taking.Reported on 02/25/2025 busPIRone HCl 10 MG Oral Tablet (Buspar)Indicati ons:Social anxiety disorder Take 1 Tablet by mouth in the morning and 1 Tablet before bedtime. 180 Tablet 4 Active metroNIDAZOLE 500 MG Oral Tablet (Flagyl)Indicati ons:Bacterial vaginosis Take 1 Tablet by mouth in the morning and 1 Tablet before bedtime. Do all this for 7 days. 14 Tablet 5 03/06/20 25 Active documented as of this encounter (statuses as of 02/27/2025) Active Problems Problem Noted Date Diagnosed Date History of recurrent UTI (urinary tract infectio n) 05/14/2023 Chronic cystitis 05/14/2023 Current moderate episode of major depressive disorder without prior episode 05/26/2021 Advance directive declined by patient 02/27/2017 Overview (02/27/2017): Does the patient have an advance directive? No, Advance Directive brochure offered, patient declined. documented as of this encounter (statuses as of 02/27/2025) Resolved Problems Problem Noted Date Diagnosed Date [...] as of this encounter (statuses as of 02/27/2025) Immunizations Name Administration Dates Next Due TDAP [...] ages 0-17 years) Not on file 09/21/2024 Food Insecurity Answer Date Recorded Within the past 12 months, y ou worried that your food would run out before you got the money to buy more. Patient declined Within the past 12 months, t he food you bought just didn't last and you didn't have money to get more. Patient declined Do you need food for this week? 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 Patient spelled last name and verbalized birthdate to verify identity. Will send flagyl. (N76.0, B96.89) Bacterial vaginosis (primary encounter diagnosis) Plan: metroNIDAZOLE 500 MG Oral Tablet (Flagyl) Twice daily for 7 days. documented in this encounter Plan of Treatment Health Maintenance Due Date Last Done Comments Depression Monitoring 01/30/2021 01/31/2020 HPV/Co-Test 2023 DTap/Tdap Vaccines (8 - Td or Tdap) 05/17/2024 05/17/2014, 03/07/2005, 10/11/1999, Additional history exists COVID-19 Vaccine ( season) 2024 Influenza Vaccine (FLU shot) (#1) 2024 Cervical Cancer Screening 05/27/2026 Pap Smear 05/27/2026 05/27/2023, 03/01/2020, 08/21/2016 Hepatitis B Vaccine Completed 09/29/1994, 07/11/1994, 1993 Hepatitis C Screening Completed 07/12/2021 HPV (Gardasil) Vaccine Aged Out No lo nger eligible based on patient's age to complete this topic MENINGOCOCCAL (MENACTRA/MENVEO) Aged Out No longer eligible based on patient's age to complete this topic Meningitis B Vaccine (Bexsero/Trumemba) Aged Out No longer eligible based on patient's age to complete this topic Pneumococcal Vaccine: Pediatrics (0 to 5 Years) and At-Risk Patients (6 to 18 Years and 19+ Years) Aged Out No longer eligib le based on patient's age to complete this topic documented as of this encounter Medical Devices Not on filedocumented as of this encounter Visit Diagnoses Diagnosis Bacterial vaginosis- Primary Vaginitis and vulvovaginitis, unspecified documented in this encounter Care Teams Pension Administrator Relationship Specialty Start Date End Date Tamika Bonilla PA-C PCP - General Physician Casino Floor Person 09/13/21 documented as of this encounter
--- OUTSIDE RECORDS SUMMARY | 2025-03-24 03:43 | External Medical Summary | Summary of Care ---
Author Name Unknown Organization [facility] Address [address] [address] Phone [phone] Care Team Providers Care Child Development Professor Name Role Phone Tamika Bonilla PA-C Primary Care Provider [phone] Reason for Visit * Reason Comments Rash Itchy red rash to fa ce left forearm and face started this am Encounter Details Date Type Department Care Team (Latest Contact Info) Description 03/21/2025 9:30 AM EDT Convenient Care Visit [facility] [address] [place] [place] [address] Kita Martinez CRNP [address] [place] [address] Poison maría dermatitis*; Pruritus Allergies Active Allergy Reactions Criticality Noted Date Comments Sulfamethoxazole-Trimethop rim 11/19/2021 Itching in mouth, hives documented as of this encounter (statuses as of 03/21/2025) Medications Nexplanon 68 MG Subcutaneous Implant (Etonogestrel) [...] Tablet before bedtime. 180 Tablet 4 Active predniSONE 10 MG Oral Tablet (Deltasone)Indic ations:Poison maría dermatitis Take 4 tabs for 3 days, 3 tabs for 3 days, 2 tabs for 3 days 1 tab for 3 days 30 Tablet 5 Active hydrOXYzine HCl 25 MG Oral TabletIndication s:Pruritus Take 1 Tablet by mouth every 6 hours as needed for Itching for up to 5 days. 20 Tablet 5 03/26/20 25 Active documented as of this encounter (statuses as of 03/21/2025) Active Problems Problem Noted Date Diagnosed Date History of recurrent UTI (urinary tract infectio n) 05/14/2023 Chronic cystitis 05/14/2023 Current moderate episode of major depressive disorder without prior episode 05/26/2021 Advance directive declined by patient 02/27/2017 Overview (02/27/2017): Does the patient have an advance directive? No, Advance Directive brochure offered, patient declined. documented as of this encounter (statuses as of 03/21/2025) Resolved Problems Problem Noted Date Diagnosed Date [...] as of this encounter (statuses as of 03/21/2025) Immunizations Name Administration Dates Next Due DTP/HIB (Tetramune) 02/19/1995, 4,07/11/1994, 994 DTaP Dipth/Tet/Acell Pertussis (Infanrix), Peds 03/07/2005,10/11/1999 Hepatitis B Vaccine 09/29/1994,07/11/1994,1993 MMR - Measles/Mumps/Rubella Vaccine 10/11/1999,0 01/02/1995 OPV - Polio Virus Vaccine (Oral) 999,10/16/1994,07/11/1994, 994 PPD 10/16/1994 TDAP (age 10 and older)(Boostrix) 05/17/2014 Varicella Vaccine (Chicken Pox) 02/05/1996 documented as of this encounter Social History Tobacco Use Types Packs/Day Years Used Date Smoking Tobacco: Former Cigarettes 0.5 4 2 010 - 2013 Passive Smoke Exposure: Past Smokeless Tobacco: Never Tobacco Cessation:Counseling Given: Not Answered Comments:Mom is a smoker Alcohol Use Standard [...] 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 Not on file Not on dominguez e documented as of this encounter Last Filed Vital Signs Vital Sign Reading Time Taken Comments Blood Pressure 126/72 03/21/2025 9:09 AM EDT Pulse 116 03/21/2025 9:09 AM EDT Temperature 36.4 °C (97.6 °F) 03/21/2025 9:09 AM ED T Respiratory Rate 16 03/21/2025 9:09 AM EDT Oxygen Saturation 100% 03/21/2025 9:09 AM EDT Inhaled Oxygen Concentration - - Weight 64 kg (141 lb) 03/21/2025 9:09 AM EDT Height 166.4 cm (5' 5.5") 03/21/2025 9:09 AM EDT Body Mass Index 23.11 03/21/2025 9:09 AM EDT documented in this encounter Patient Instructions * Patient Instructions* Kita Martinez CRNP - 03/21/2025 10:09 AM EDT - You can use topical astringents like burrows solution or calamine lotion. Try using Calmoseptine OTC to help with itching. Place in the fridge before applying. - You can also use topical steroid creams like hydrocortisone cream or ointment (unless you were prescribed a prescription strength steroid cream). Steroid creams should never be applied to eyes, mouth, genitals, or other mucus membranes. - Daily non-allergic allergy medication like Claritin, Zyrtec, or Christine can be helpful for itching. - You can take hydroxyzine as needed for itching. This may make you drowsy. Take at night. - If you were prescribed oral steroids, make sure you take this as directed and do not stop it before directed. - If you were prescribed oral or topical antibiotics, take as directed and do not stop prior to completion of the course. Your symptoms should start to resolve over the next few days. Follow-up with PCP or return if no improvement in about 3-5 days, sooner if symptoms worsen. ED if acutely worsens. documented in this encounter Progress Notes * Kita Martinez CRNP - 03/21/2025 9:20 AM EDT Images from the original note were not included. Convenient Care Basic Exam Crow Moffett is a 29 year old year old female who presents for evaluation of rash. Possible poison maría. Onset of symptoms was today. Currently the symptoms are still present and constant . Quality of the symptoms are itching. Severity of symptoms are moderate. Location: Left face, Left f-arm Worsened by: nothing Relieved by: nothing Context: was working in the yard and cutting a tree/porras yesterday Associated Symptoms: Admits to: no other complaints Denies: no other complaints Pt presents for evaluation of possible poison maría. Reports she was doing yard work yesterday. This AM began with rash to L forearm, bilateral forehead, and L cheek. Also starting around L eye. No vision changes. + itching. 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 Social History Tobacco Use Smoking status: Former Current packs/day: 0.00 Average packs/day: 0.5 packs/day for 4.0 years (2.0 ttl pk-yrs) Types: Cigarettes Start date: 2009 Quit date: 2013 Years since quittin.3 Passive exposure: Past Smokeless tobacco: Never Tobacco comments: Mom is a smoker Substance Use Topics Alcohol use: Yes Alcohol/week: 10.0 standard drinks of alcohol Types: 10 Mixed drink(s) containing 1.5 shots of alcohol per week Comment: ocas Vaping/E-Cigarette Use Vaping/E-Cigarette Use Never User Vaping/E-Cigarette Substances Vaping/E-Cigarette Devices Patient Active Problem List Diagnosis Advance directive declined by patient Current moderate episode of major depressive disorder without prior episode (HCC) History of recurrent UTI (urinary tract infection) Chronic cystitis Review of patient's allergies indicates: Allergen Reactions Bactrim [Sulfamethoxazole-Trimethoprim] Itching in mouth, hives Current Outpatient Medications Medication Sig Dispense Refill Nexplanon 68 MG Subcutaneous Implant (Etonogestrel) Inject 1 Each into the skin once. valACYclovir HCl 500 MG Oral Tablet (Valtrex) Take 1 Tablet by mouth in the morning. 30 Tablet 6 Triamcinolone Acetonide 0.1 % External Cream (Aristocort) busPIRone HCl 10 MG Oral Tablet (Buspar) Take 1 Tablet by mouth in the morning and 1 Tablet before bedtime. 180 Tablet 0 predniSONE 10 MG Oral Tablet (Deltasone) Take 4 tabs for 3 days, 3 tabs for 3 days, 2 tabs for 3 days 1 tab for 3 days 30 Tablet 0 hydrOXYzine HCl 25 MG Oral Tablet Take 1 Tablet by mouth every 6 hours as needed for Itching for upto 5 days. 20 Tablet 0 Blood Pressure Kit Use to monitor blood pressure 1 Kit 1 Propranolol HCl 10 MG Oral Tablet (Inderal) Take 1 Tablet by mouth 2 times a day as needed (social anxiety). (Patient not taking: Reported on 02/25/2025) 20 Tablet 0 No current facility-administered medications for this visit. Nursing Notes and Vital Signs reviewed. BP 126/72 | Pulse 116 | Temp 36.4 °C (97.6 °F) (Tympanic) | Resp 16 | Ht 1.664 m (5' 5.5") | Wt 64 kg (141 lb) | SpO2 100% | No | BMI 23.11 kg/m² | BSA 1.72 m² Physical Exam Constitutional: Appearance: Normal appearance. HENT: Head: Normocephalic. Right Ear: Tympanic membrane, ear canal and external ear normal. Left Ear: Ear canal and external ear normal. Mouth/Throat: Mouth: Mucous membranes are moist. Pharynx: Oropharynx is clear. Eyes: Extraocular Movements: Extraocular movements intact. Conjunctiva/sclera: Conjunctivae normal. Pupils: Pupils are equal, round, and reactive to light. Cardiovascular: Rate and Rhythm: Normal rate and regular rhythm. Heart sounds: Normal heart sounds. Pulmonary: Effort: Pulmonary effort is normal. No respiratory distress. Breath sounds: Normal breath sounds. No stridor. No wheezing or rhonchi. Skin: Findings: Rash present. Rash is macular and papular. Comments: + macular papular rash to bilateral forehead, L cheekl + papular rash to L forearm Consistent with poison maría dermatitis Neurological: Mental Status: She is alert. ASSESSMENT: Poison maría dermatitis (Primary) - predniSONE 10 MG Oral Tablet (Deltasone); Take 4 tabs for 3 days, 3 tabs for 3 days, 2 tabs for 3days 1 tab for 3 days Pruritus - hydrOXYzine HCl 25 MG Oral Tablet; Take 1 Tablet by mouth every 6 hours as needed for Itching forup to 5 days. Consistent with poison maría dermatitis Prednisone taper Hydroxyzine PRN itching Calmoseptine OTC OTC symptomatic management Follow up with PCP or RTC if s/s persist ER if worsened. WARREN [address] [facility] [address] [facility] [phone] documented in this encounter Nursing Notes * Mariel Small LPN - 03/21/2025 9:15 AM EDT Crow Moffett is a 29 year old female who presents to walk-in clinic today complaining of Chief Complaint Patient presents with Rash Itchy red rash to face left forearm and face started this am OTC treatments tried:nothing Patient is accompanied by no one for today's visit. documented in this encounter Plan of Treatment Health Maintenance Due Date Last Done Comments Depression Monitoring 2005 HPV/Co-Test 2023 DTap/Tdap Vaccines (8 - Td or Tdap) 05/17/2024 05/17/2014, 03/07/2005, 10/11/1999, Additional history exists COVID-19 Vaccine ( season) 2024 Influenza Vaccine (FLU shot) (Season Ended) 2025 Cervical Cancer Screening 05/27/2026 Pap Smear 05/27/2026 05/27/2023, 03/0 01/2020, 08/21/2016 Hepatitis B Vaccine Completed 09/29/1994, [...] 19+ Years) Aged Out No longer eligib bianka based on patient's age to complete this topic documented as of this encounter Medical Devices Not on filedocumented as of this encounter Visit Diagnoses Diagnosis Poison maría dermatitis- Primary Contact dermatitis and other eczema due to plants (except food) Pruritus Unspecified pruritic disorder documented in this encounter Care Teams Child Development Professor Relationship Specialty Start Date End Date Tamika Bonilla PA-C PCP - General Physician Web Production Designer 09/13/21 documented as of this encounter
--- OUTSIDE RECORDS SUMMARY | 2025-03-24 03:43 | External Medical Summary ---
Author Name Unknown Address Unknown Organization [id number]:[facility] [place] [address] [place] [id number] Laboratory Report Ordering Provider Test Date Status ELIZABETH RAVI 10/16/2024 14:12:55 Final Observation Date Value Abnormality Reference (Units) Status Bacteria identified in Specimen by Culture 10/16/2024 14:12:55 No significant growth Final Test: Culture, Urine, Quanti tative
Specimen Source: Urine, Clean Catch
Specimen Type: Urine
Specimen Date: 10/16/2024 1412
Result Date: 10/17/2024 1406
Result Status: Final result
Resulting Lab: [facility] [place]
[address]
[place] [address]

CULTURE

No significant growth

null Performing Location [facility] [place] - [address] [facility] [address]
--- OUTSIDE RECORDS SUMMARY | 2025-03-24 03:43 | External Medical Summary ---
Author Name Unknown Address Unknown Organization [id number][place] [place] [address] [facility] [address] Laboratory Report Ordering Provider Test Date Status CARMELA ARIAS 02/25/2025 10:36:51 Final Observation Date Value Abnormality Reference (Units ) Status Bacterial vaginosis [Interpretation] in Vaginal fluid Qualitative 02/25/2025 10:36:51 Positive Abnormal Negative Final Positive for Bacterial Vagin osis. Correlate results with other clinical findings. Ernestine sp DNA [Presence] in Vaginal fluid by Probe 02/25/2025 10:36:51 Negative Negative Final No Ernestine species group RNA detected. Correlate results with other clinical findings. Ernestine glabrata RNA [Presen ce] in Vaginal fluid by EVAN with probe detection 02/25/2025 10:36:51 Negative Negative Final No Ernestine glabrata RNA dete cted. Correlate results with other clinical findings. Trichomonas vaginalis DNA [P resence] in Vaginal fluid by Probe 02/25/2025 10:36:51 Negative Negative Final No Trichomonas vaginalis RNA detected. Performing Location LAB[facility]ATORY [facility] - [address] [facility] [address]
--- OUTSIDE RECORDS SUMMARY | 2025-03-24 03:43 | External Medical Summary | Summary of Care ---
Author Name Unknown Organization [facility] Address [address] [place] [facility] [place] [address] Phone [phone] Care Team Providers Care Quality Assurance Qa Lab Analyst Name Role Phone Tamika Bonilla PA-C Primary Care Provider [phone] Reason for Visit * Reason Comments Other Abnormal vaginal dis charge x Tue, Pt stated that she forgot to change her tampon until about 3 pm and noticed yellow green on tampon Encounter Details Date Type Department Care Team (Latest Contact Info) Description 02/25/2025 10:00 AM EDT Convenient Care Visit [facility] [address], [place] [id number] Ana Laura Schmitz CRNP [address] [place] [id number] Vaginal discharge* Allergies Active Allergy Reactions Criticality Noted Date Comments Sulfamethoxazole-Trimethop rim 11/19/2021 Itching in mouth, hives documented as of this encounter (statuses as of 02/25/2025) Medications Nexplanon 68 MG Subcutaneous Implant (Etonogestrel) [...] Tablet before bedtime. 180 Tablet 4 Active documented as of this encounter (statuses as of 02/25/2025) Active Problems Problem Noted Date Diagnosed Date History of recurrent UTI (urinary tract infectio n) 05/14/2023 Chronic cystitis 05/14/2023 Current moderate episode of major depressive disorder without prior episode 05/26/2021 Advance directive declined by patient 02/27/2017 Overview (02/27/2017): Does the patient have an advance directive? No, Advance Directive brochure offered, patient declined. documented as of this encounter (statuses as of 02/25/2025) Resolved Problems Problem Noted Date Diagnosed Date Resolved Date UTI (urinary tract infection) 01/13/2017 07/25/2017 Overview (01/13/2017): UTI at NOB visit, AWILDA next visit. Supervision of other normal , antepartum 01/02/2017 07/25/2017 Overview (07/22/2017): Problem Action Taken Date entered Entered by Date resolved nutrition WIC info given Due date letter given 03/28/2017 Dolores Murrlel RN 03/28/2017 Home nursing/ [facility] declines 03/28/2017 Dolores Murrell RN 03/28/2017 Problem Action Taken Date entered Entered by Date resolved Current needs or questions Patient denies having any current needs or questions 05/23/2017 Barbi Desai, ANA MARIA 05/23/17 Problem Action Taken Date entered Entered [...] as of this encounter (statuses as of 02/25/2025) Immunizations Name Administration Dates Next Due TDAP [...] 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 Not on file Not on dominguez e documented as of this encounter Last Filed Vital Signs Vital Sign Reading Time Taken Comments Blood Pressure 116/78 02/25/2025 10:00 AM EDT Pulse 85 02/25/2025 10:00 AM EDT Temperature 36.1 °C (97 °F) 02/25/2025 10:00 AM EDT Respiratory Rate 18 02/25/2025 10:00 AM EDT Oxygen Saturation 98% 02/25/2025 10:00 AM EDT Inhaled Oxygen Concentration - - Weight 63.7 kg (140 lb 6.4 oz) 02/25/2025 10:00 AM EDT Height - - Body Mass Index 23.36 10/16/2024 1:48 PM EST documented in this encounter Progress Notes * Ana Laura Schmitz CRNP - 02/25/2025 10:09 AM EDT Convenient Care Basic Exam Subjective Crow Moffett is a 29 year old female that presents to the [facility] with vaginal discharge since 02/22. She forgot to change her tampon from afternoon 02/21 until about 3pm 02/22 and noticed yellow and green on the tampon. She has continued to have some odd discharge since then. Denies itching or pelvic pain or rashes. No further bleeding. She has nexplanon implanted in her left inner arm and has had it for about 2 years. Her menses are typically a little irregular. Objective BP 116/78 | Pulse 85 | Temp 36.1 °C (97 °F) (Tympanic) | Resp 18 | Wt 63.7 kg (140 lb 6.4 oz) | SpO2 98% | BMI 23.36 kg/m² | BSA 1.71 m² Body mass index is 23.36 kg/m². Review of Systems Constitutional: Negative. HENT: Negative. Eyes: Negative. Respiratory: Negative. Cardiovascular: Negative. Gastrointestinal: Negative. Genitourinary: Positive for vaginal discharge. Skin: Negative. Physical Exam Vitals and nursing note reviewed. Constitutional: Appearance: Normal appearance. HENT: Head: Normocephalic and atraumatic. Mouth/Throat: Mouth: Mucous membranes are moist. Eyes: Conjunctiva/sclera: Conjunctivae normal. Cardiovascular: Rate and Rhythm: Normal rate. Pulmonary: Effort: Pulmonary effort is normal. Abdominal: General: Abdomen is flat. Palpations: Abdomen is soft. Comments: No reported pain Genitourinary: Comments: Deferred exam at this time, opting for self-swab collection. Skin: General: Skin is dry. Neurological: Mental Status: She is alert and oriented to person, place, and time. 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 Strabismus Tobacco use quit 2013 Patient Active Problem List Diagnosis Advance directive declined by patient Current moderate episode of major depressive disorder without prior episode (HCC) History of recurrent UTI (urinary tract infection) Chronic cystitis BP Readings from Last 3 Encounters: 02/25/25 116/78 10/16/24 108/72 09/22/24 122/84 Wt Readings from Last 3 Encounters: 02/25/25 63.7 kg (140 lb 6.4 oz) 10/16/24 63.9 kg (140 lb 12.8 oz) 09/22/24 63.9 kg (140 lb 12.8 oz) Assessment and plan Vaginal discharge (Primary) - VAGINOSIS PANEL, PCR Upon collecting her sample she noticed that her period had resumed. Advised to skip using a tampon for at least today to allow her body to regulate and flush out. Reviewed timeline for results to be available and the treatment regimens for both BV and for Yeast infections. If + will need to initiate treatment. Should avoid douching. Drink plenty of water. Could consider a probiotic daily for a few weeks. Follow up Follow Up: Return if symptoms worsen or fail to improve. Total time today including reviewing chart before the visit, pertinent labs, imaging reports, face to face time, and documentation time was 15 minutes. The above was discussed and understanding was expressed. WARREN Mccurdy documented in this encounter Nursing Notes * Karthikeyan Fredreick LPN - 02/25/2025 10:00 AM EDT Crow Moffett is a 29 year old female who presents to walk-in clinic today complaining of Chief Complaint Patient presents with Other Abnormal vaginal discharge x Tue, Pt stated that she forgot to change her tampon until about 3 pm and noticed yellow green on tampon Patient is accompanied by no one for today's visit. documented in this encounter Plan of Treatment Pending Results Name Type Priority Associated Diagnoses Date /Time VAGINOSIS PANEL, PCR Lab Routine Vaginal discharge 02/25/2025 10:36 AM EDT Health Maintenance Due Date Last Done Comments Depression Monitoring 01/30/2021 01/31/2020 HPV/Co-Test 2023 DTap/Tdap Vaccines (8 - Td or Tdap) 05/17/2024 05/17/2014, 03/07/2005, 10/11/1999, Additional history exists COVID-19 Vaccine ( season) 2024 Influenza Vaccine (FLU shot) (#1) 2024 Cervical Cancer Screening 05/27/2026 Pap Smear 05/27/2026 05/27/2023, 0301/2020, 08/21/2016 Hepatitis B Vaccine Completed 09/29/1994, 07/11/1994, [...] as of this encounter Visit Diagnoses Diagnosis Vaginal discharge- Primary Leukorrhea, not specified as infective documented in this encounter Care Teams Quality Assurance Qa Lab Analyst Relationship Specialty Start Date End Date Tamika Bonilla PA-C PCP - General Physician Transportation Assistant 09/13/21 documented as of this encounter"
--- OUTSIDE RECORDS SUMMARY | 2025-03-24 03:43 | External Medical Summary | Summary of Care ---
Author Name Unknown Organization [facility] Address [address] [facility] [place] [address] Phone [phone] Care Team Providers Care Log Raft Worker Name Role Phone Tamika Bonilla PA-C Primary Care Provider [phone] [phone] Reason for Visit * Reason Comments Urinary Tract Infection Symptoms Encounter Details Date Type Department Care Team (Latest Contact Info) Description 10/16/2024 2:30 PM EST Convenient Care Visit [facility] [address] [place] [address] Reshma Concepcion CRNP [address] [place] [address] Dysuria*; Urinary tract infection without hematuria, site unspecified Allergies Active Allergy Reactions Criticality Noted Date Comments Sulfamethoxazole-Trimethop rim 11/19/2021 Itching in mouth, hives documented as of this encounter (statuses as of 10/16/2024) Medications Nexplanon 68 MG Subcutaneous Implant (Etonogestrel) Inject 1 Each into the skin once. Active valACYclovir HCl 500 MG Oral Tablet (Valtrex)Indicati ons:HSV-2 infection Take 1 Tablet by mouth in the morning. 30 Tablet 6 3 Active Triamcinolone Acetonide 0.1 % External Cream (Aristocort) 4 Active Blood Pressure KitIndications:El evated blood pressure, situational,FH: HTN (hypertension) Use to monitor blood pressure 1 Kit 1 4 Active busPIRone HCl 10 MG Oral Tablet (Buspar)Indicatio ns:Social anxiety disorder Take 1 Tablet by mouth in the morning and 1 Tablet before bedtime. 20 Tablet 4 Active Propranolol HCl 10 MG Oral Tablet (Inderal)Indicati ons:Social anxiety disorder Take 1 Tablet by mouth 2 times a day as needed (social anxiety). 20 Tablet 4 Active Nitrofurantoin Monohyd Macro 100 MG Oral Capsule (Macrobid)Indicat ions:Dysuria Take 1 Capsule by mouth in the morning and 1 Capsule before bedtime. Do all this for 7 days. With food until gone. 14 Capsule 4 10/23/20 24 Active documented as of this encounter (statuses as of 10/16/2024) Active Problems Problem Noted Date Diagnosed Date History of recurrent UTI (urinary tract infectio n) 05/14/2023 Chronic cystitis 05/14/2023 Current moderate episode of major depressive disorder without prior episode 05/26/2021 Advance directive declined by patient 02/27/2017 Overview (02/27/2017): Does the patient have an advance directive? No, Advance Directive brochure offered, patient declined. 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 Not on file Not on dominguez e documented as of this encounter Last Filed Vital Signs Vital Sign Reading Time Taken Comments Blood Pressure 108/72 10/16/2024 1:48 PM EST Pulse 100 10/16/2024 1:48 PM EST Temperature 36.3 °C (97.3 °F) 10/16/2024 1:48 PM ES T Respiratory Rate 18 10/16/2024 1:48 PM EST Oxygen Saturation 99% 10/16/2024 1:48 PM EST Inhaled Oxygen Concentration - - Weight 63.9 kg (140 lb 12.8 oz) 10/16/2024 1:48 PM EST Height 165.1 cm (5' 5") 10/16/2024 1:48 PM EST Body Mass Index 23.43 10/16/2024 1:48 PM EST documented in this encounter Progress Notes * Reshma Concepcion CRNP - 10/16/2024 2:05 PM EST Convenient Care Basic Exam Crow Moffett is a 29 year old year old female who presents for evaluation of : frequency, urgency, and dysuria, for several days, has taken azo with mild relief but symptoms return. She has bowel problems and often has e-coli in the urine. Culture does show this. NO other associated symptoms, negative CV tenderness, not sexually active Associated Symptoms: Admits to: no other complaints Denies: no other complaints REVIEW OF SYSTEMS: See HPI for pertinent positives and negatives. Patient denies addtional complaints. 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 Social History Tobacco Use Smoking status: Former Current packs/day: 0.00 Average packs/day: 0.5 packs/day for 4.0 years (2.0 ttl pk-yrs) Types: Cigarettes Start date: 2009 Quit date: 2013 Years since quittin.8 Passive exposure: Past Smokeless tobacco: Never Tobacco [...] Triamcinolone Acetonide 0.1 % External Cream (Aristocort) Blood Pressure Kit Use to monitor blood pressure 1 Kit 1 busPIRone HCl 10 MG Oral Tablet (Buspar) Take 1 Tablet by mouth in the morning and 1 Tablet before bedtime. 20 Tablet 0 Propranolol HCl 10 MG Oral Tablet (Inderal) Take 1 Tablet by mouth 2 times a day as needed (social anxiety). 20 Tablet 0 No current facility-administered medications for this visit. Nursing Notes and Vital Signs reviewed. PHYSICAL EXAM: VITALS: BP 108/72 | Pulse 100 | Temp 36.3 °C (97.3 °F) (Tympanic) | Resp 18 | Ht 1.651 m (5' 5") | Wt 63.9 kg (140 lb 12.8 oz) | SpO2 99% | BMI 23.43 kg/m² | BSA 1.71 m² GENERAL: alert, healthy, no distress, well nourished, and well developed HEAD: Normocephalic, No masses, lesions, tenderness or abnormalities OROPHARYNX: no exudate, no erythema, lips, buccal mucosa, and tongue normal, and mucous membranes are moist SKIN: skin color, texture, turgor are normal, no rashes or significant lesions Assessment: Increase fluids. Tylenol as needed for any aches, pains, fever. OK to use over the counter Maximum Strength Azo to help with urinary burning, frequency and urgency. (Will turn urine orange) If no improvement in 3 days, [facility] by Primary Care Provider If develops fever, increasing back pain or vomiting, to go to the Emergency Room. Dysuria (Primary) - URINALYSIS, POINT OF CARE (ENTER/EDIT) - CULTURE, URINE, QUANTITATIVE WARREN Rivera [facility] [address] [facility] [address] documented in this encounter Nursing Notes * Kylie Salter MED ASSIST - 10/16/2024 1:51 PM EST Crow Moffett is a 29 year old female who presents to walk-in clinic today complaining of Chief Complaint Patient presents with Urinary Tract Infection Symptoms Brief history:pt is here with UTI symptoms urgency of urination and burning Onset/duration Friday. Tried took 2 pills from last time she had a UTI Effectiveness no Patient is accompanied by no one for today's visit. documented in this encounter Plan of Treatment Pending Results Name Type Priority Associated Diagnoses Date /Time CULTURE, URINE, QUANTITATIVE Lab STAT Dysuria 10/16/2024 2:12 PM EST Health Maintenance Due Date Last Done Comments [...] Not on filedocumented as of this encounter Procedures Procedure Name Priority Date/Time Associated Diagnosis Comments URINALYSIS, POINT OF CARE (ENTER/EDIT) Routine 10/16/2024 Dysuria documented in this encounter Results * (ABNORMAL) URINALYSIS, POINT OF CARE (ENTER/EDIT) (10/16/2024) Color, Urine Yellow Yellow or Light Yellow Clarity, Urine Clear Clear Glucose, Urine Negative Negative mg/dL Bilirubin, Urine Negative Negative Ketone, Urine Negative Negative mg/dL Specific Wil[place], Urine 1.025 1.003 - 1.030 Blood, Urine Trace-intact (A) Negative pH, Urine 6.0 5.0 - 7.5 units Protein, Urine Negative Negative mg/dL Urobilinogen, Urine 1.0 0.2 - 1.0 mg/dL Nitrite, Urine Negative Negative Esterase, Urine Negative Negative Urine 10/16/2024 Reshma [facility] POINT OF CARE TEST ENT ER/EDIT ORDERABLES Final Result documented in this encounter Visit Diagnoses Diagnosis Dysuria- Primary Urinary tract infection without hematuria, site unspecified documented in this encounter Care Teams Log Raft Worker Relationship Specialty Start Date End Date Tamika Bonilla PA-C [address] [facility] [place] [address] PCP - General Physician Flow Machine Operator 09/13/21 documented as of this encounter
--- OUTSIDE RECORDS SUMMARY | 2025-03-24 03:43 | External Medical Summary | Summary of Care ---
Author Name Unknown Organization [facility] Address [address] [address] Phone [phone] Care Team Providers Care Property Appraiser Name Role Phone Tamika Bonilla PA-C Primary Care Provider [phone] [phone] Reason for Visit * Reason Comments Rash Itchy red rash to fa ce left forearm and face started this am Encounter Details Date Type Department Care Team (Latest Contact Info) Description 03/21/2025 9:30 AM EDT Convenient Care Visit [facility] [address] [place] [address] Kita Martinez CRNP [address] [place] [address] Poison maría dermatitis*; Pruritus Allergies Active [...] 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 WARREN Fabian [facility] [address] [facility] [address] documented in this encounter Nursing Notes * [...] disorder documented in this encounter Care Teams Property Appraiser Relationship Specialty Start Date End Date Tamika Bonilla PA-C PCP - General Physician Fence Repairman 09/13/21 documented as of this encounter
--- OUTSIDE RECORDS SUMMARY | 2025-03-24 03:43 | External Medical Summary | Summary of Care ---
Author Name Unknown Organization [facility] Address [address] [facility] [place] [address] Phone [phone] Care Team Providers Care Java Software Developer Name Role Phone Tamika Bonilla PA-C Primary Care Provider [phone] Reason for Visit * Reason Onset Date Comments Medication Refill 10/22/2024 Encounter Details Date Type Department Care Team (Late st Contact Info) Description 10/22/2024 Refill [facility] [address] [place] [facility] [place] [address] Tamika Bonilla PA-C [address] [place] [address] Elevated blood pressure, situational; FH: HTN (hypertension) Allergies Active Allergy Reactions Criticality Noted Date [...] needed (social anxiety). 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 Not on file Not on dominguez e documented as of this encounter Miscellaneous Notes * Telephone Encounter - Isak Abbott [facility] - 10/25/2024 6:21 AM ESTRefused Prescriptions: Disp Refills Blood Pressure Kit 1 Kit 1 Sig: Use to monitor blood pressureRefused By: ISAK ABBOTT LReason for Refusal: Other (comment below) Electronically signed by Isak Abbott [facility] at 10/25/2024 6:21 AM EST documented in this encounter Plan [...] as of this encounter Visit Diagnoses Diagnosis Elevated blood pressure, situational Elevated blood pressure reading without diagnosis of hypertension FH: HTN (hypertension) Family history of other cardiovascular diseases documented in this encounter Care Teams Java Software Developer Relationship Specialty Start Date End Date Tamika Bonilla PA-C [address] [place] [place] [id number] PCP - General Physician Barrel Centerer 09/13/21 documented as of this encounter
[2025-03-24] MEDS: AMPICILLIN/SULBACTAM SOD 3,000 MG/100 ML BAG IV SCH (03:57)
[2025-03-24 06:12] LABS: Basophils # (auto) 0.06 K/uL (0.00-0.20); Basophils % (auto) 0.7 %; Eosinophils % (auto) 2.4 %; Hematocrit (blood only) 35.3 % (37.0-47.0); Immature Granulocytes # (auto) 0.02 K/uL (0.01-0.20); Immature Granulocytes % (auto) 0.2 %; Lymphocytes # (auto) 3.69 K/uL (1.20-3.40); Lymphocytes % (auto) 43.5 %; Mean Corpuscular Hemoglobin 31.2 pg (25.0-34.0); Mean Corpuscular Volume 91.7 fL (80.0-100.0); Mean Platelet Volume 9.8 fL (9.4-12.4); Monocytes # (auto) 0.51 K/uL (0.11-0.59); Neutrophils # (auto) 4.01 K/uL (1.40-6.50); Neutrophils % (auto) 47.2 %; Platelet Count 199 K/uL (130-400); RDW Coefficient of Variation 13.2 % (11.5-14.5); RDW Standard Deviation 44.2 fL (36.4-46.3); Red Blood Count 3.85 M/uL (4.20-5.40); White Blood Count 8.49 K/ul (4.8-10.8)
[2025-03-24 06:27] LABS: BUN Creatinine Ratio 14.6 (10-20); Calcium 8.3 mg/dl (8.6-10.3); Creatinine Clr Calc Pharmacy 89.4 ml/min; Magnesium 1.8 mg/dl (1.7-2.4); Potassium 3.5 mmol/L (3.5-5.1)
[2025-03-24] MEDS: FAMOTIDINE 20MG IV PUSH 20 MG/5 ML SYR IV SCH (08:00)
[2025-03-24] MEDS: ENOXAPARIN INJ 40 MG/0.4 ML SYR SQ SCH (08:00)
[2025-03-24] MEDS: CETIRIZINE HCL 10 MG TABLET PO SCH (08:00)
[2025-03-24] MEDS: predniSONE 20 MG TAB PO SCH (08:00)
[2025-03-24] MEDS ORDERED: methylPREDNISolone 125 MG/2 ML VIAL IV SCH (09:15)
[2025-03-24] MEDS: diphenhydrAMINE 50 MG/ML VIAL IV SCH (09:49)
[2025-03-24] MEDS: CLOBETASOL PROPIONATE 0.05% CREAM 15 GM TUBE EXT SCH (09:49)
[2025-03-24] MEDS: methylPREDNISolone 40 MG in SYRINGE 0 ML IV SCH (10:23)
--- NOTE | 2025-03-24 16:07 | Hospitalist Progress Note ---
Date of Service March 24, 2025 Assessment & Plan (1) Contact dermatitis: Plan: per Dr. Cannon's notes with addendum: 29-year-old female with past medical history significant for chronic cystitis, depression, history of recurrent UTI presents with rash. [place] On Friday she worked in her yard cutting shrubs. Friday morning she woke up with rash initially in the wrist region and quickly progressing to her face mostly on the left face and her body. Rash was itching. She went to urgent care and was prescribed prednisone for possible poison maría. Since Friday she is taking prednisone 40 mg and as rash was not getting better and was spreading she took 60 mg prednisone today. She also noticed swelling in the left side of her face and left eye region and she came to the ER. In the ER she was given IV Pepcid and IV Benadryl and and also IV Unasyn for possible cellulitis of the left face and left orbital region. Patient she was also feeling some pressure in her front part of neck but currently resolved. Denies shortness of breath. Denies difficulty swallowing. Denies chest pain. No headache. Vision is okay. No runny nose or sore throat. No nausea. No abdominal pain. Normal bowel and bladder movements. Currently resting comfortably and hemodynamically stable. Contact dermatitis Labs okay Will continue with prednisone 60 mg daily, Zyrtec 10 mg daily and Pepcid 20 mg twice daily and IV Benadryl as needed Monitor for response 03/24 No improvement compared to yesterday Facial edema, periorbital edema also transition from prednisone to IV Solu-Medrol 40 mg every 8 hours Change Benadryl 25 mg IV to every 6 hours Clobetasol cream also ordered twice daily Continue famotidine twice daily, Zyrtec daily Possible preorbital cellulitis ER started on Unasyn which will be continued We will monitor response 03/24 continue IV Zosyn DVT prophylaxis Lovenox Disposition possible discharge tomorrow if with clinical improvement Full code. Admission and Anticipated Discharge Date Admission Date: March 23, 2025 Subjective follow-up for contact dermatitis, etc. Seen resting in bed, sitting up, sleeping but easily awakened States facial swelling is worse this morning Redness, itching over the neck, chest and legs also about the same denies pain over the affected areas no throat/tongue/lip swelling No shortness of breath or wheezing No other new symptoms Review of Systems Review of Systems: all noted and negative except for above Physical Exam Physical Exam: General- oriented x 3, not in distress, speaks in sentences with no effort or accessory muscle use Face- moderate edema with mild erythema over the left side of the face Eyes- moderate periorbital edema, anicteric Neck- positive moderate erythema, hives over anterior neck Chest- positive moderate erythema, hives on the chest Lungs- clear breath sounds bilaterally, no rales/wheezes Heart- normal rate, regular rhythm; no murmurs Abdomen- normal bowel sounds, nondistended, soft, nontender Extremities- no pretibial edema, no calf tenderness Neuro- alert, oriented x 3; no gross focal neurologic deficits Skin- warm & dry Results & Data Results & Data Vital Signs (Past 12 Hours) Vital Signs Temp Pulse Pulse Resp BP Pulse Ox O2 Del Method 03/24/25 15:39 36.7 C 60 16 121/81 97 Room Air 03/24/25 13:00 67 03/24/25 11:16 36.7 C 56 L 16 111/75 96 Room Air 03/24/25 07:49 36.7 C 53 L 16 103/58 L 97 Room Air 03/24/25 06:45 64 all noted and reviewed including below
[2025-03-24 19:36] LABS: A calco-baum cmplx NotReported Not Detected (NotDetected); Bact fragilis Not Reported Not Detected (NotDetected); Blood Culture Id Panel See PCR Comment (NotDetected); C auris Not Reported Not Detected (NotDetected); Calbicans Not Reported Not Detected (NotDetected); Candida glabrata Not Reported Not Detected (NotDetected); Candida krusei Not Reported Not Detected (NotDetected); Cneoformans/gatti Not Reported Not Detected (NotDetected); Cparapsilosis Not Reported Not Detected (NotDetected); Ctropicalis Not Reported Not Detected (NotDetected); E cloacae compx Not Reported Not Detected (NotDetected); Efaecalis Not Reported Not Detected (NotDetected); Efaecium Not Reported Not Detected (NotDetected); Enterobacterales Not Reported Not Detected (NotDetected); Escherichia coli Not Reported Not Detected (NotDetected); H influenzae Not Reported Not Detected (NotDetected); K aerogenes Not Reported Not Detected (NotDetected); Koxytoca Not Reported Not Detected (NotDetected); Kpneumoniae grp Not Reported Not Detected (NotDetected); Lmonocyt Not Reported Not Detected (NotDetected); N meningitidis Not Reported Not Detected (NotDetected); P aeruginosa Not Reported Not Detected (NotDetected); Proteus spp Not Reported Not Detected (NotDetected); Salmonella spp Not Reported Not Detected (NotDetected); Staph lugdunensis Not Reported Not Detected (NotDetected); Staph spp. Not Reported DETECTED (NotDetected); Staphaureus Not Reported Not Detected (NotDetected); Staphepi Not Reported DETECTED (NotDetected); Stenmaltophilia Not Reported Not Detected (NotDetected); Strep agal(GrpB) Not Reported Not Detected (NotDetected); Strep pneum Not Reported Not Detected (NotDetected); Strep pyog (GrpA) Not Reported Not Detected (NotDetected); Strep spp Not Reported Not Detected (NotDetected); mecAC Resistant Gene DETECTED (NotDetected)
[2025-03-24 19:59] LABS: Staphylococcus epidermidis DETECTED (NotDetected); Staphylococcus spp. DETECTED (NotDetected)
[2025-03-24] MEDS ORDERED: VANCOMYCIN CONSULT ACTIVE PRN (20:04)
[2025-03-24] MEDS: VANCOMYCIN HCL 1,250 MG in SODIUM CHLORIDE 0.9% 250 ML IV STA (20:42)
[2025-03-24] MEDS: VANCOMYCIN HCL 1,000 MG/270 ML BAG IV SCH (21:33)
[2025-03-25] MEDS: VANCOMYCIN HCL 1,250 MG in SODIUM CHLORIDE 0.9% 250 ML IV SCH (02:23)
[2025-03-25 06:29] LABS: Creatinine Clr Calc Pharmacy 89.4 ml/min
--- NOTE | 2025-03-25 09:10 | Discharge Summary ---
Discharge Summary Date of Service March 25, 2025 Principal Dx & Hospital Course #1 = Principal Diagnosis (1) Contact dermatitis: Ms. Moffett is a 29-year-old female with past medical history significant for chronic cystitis, depression, history of recurrent UTI presents with rash and noted to have a severe toxicodendron dermatitis from poison maría. Patient was started on OP steroid taper on Friday, but with minimal improvement promping presentation. Patient stated on solumedrol IV q8, antihistamines, and unasyn. She reports symptomatic improvement in itching, with some mild resolution in swelling. On day of discharge, steroid taper was discussed. Discussed that continued use of antihistamines will likely be of no relief and to trial other measures like calamine or other agents for itching. Given location of swelling and erythema on face, antibiotics continued as op for risk of superimposed bacterial infection. Patient reports she is eating well, comfortable with the discharge plan, and denies any acute concerns--verbalizing understanding that the swelling and pigmentation may take some time to resolve. #Toxicodendron dermatitis, poison maría #c.f superimposed cellulitis from scratching Labs okay plan taper steroid starting tomorrow with: 60 mg daily for 2 Days; 40 mg daily for 3 Days; 20 mg daily for 3 Days; 10 mg daily for 3 Days. Discussed patient can utilize antihistamine, however, there is minimal benefit in this setting, patient verbalized understanding Doxycycline 100mg bid x 5 days Notes For Next Care Provider Medication Changes From Visit Prednisone 60 mg daily for 2 Days; 40 mg daily for 3 Days; 20 mg daily for 3 Days; 10 mg daily for 3 Days. Discussed patient can utilize antihistamine, however, there is minimal benefit in this setting, patient verbalized understanding Doxycycline 100mg bid x 5 days Admission HPI Per Admitting Provider 29-year-old female with past medical history significant for chronic cystitis, depression, history of recurrent UTI presents with rash. [place] On Friday she worked in her yard cutting shrubs. Friday morning she woke up with rash initially in the wrist region and quickly progressing to her face mostly on the left face and her body. Rash was itching. She went to urgent care and was prescribed prednisone for possible poison maría. Since Friday she is taking prednisone 40 mg and as rash was not getting better and was spreading she took 60 mg prednisone today. She also noticed swelling in the left side of her face and left eye region and she came to the ER. In the ER she was given IV Pepcid and IV Benadryl and and also IV Unasyn for possible cellulitis of the left face and left orbital region. Patient she was also feeling some pressure in her front part of neck but currently resolved. Denies shortness of breath. Denies difficulty swallowing. Denies chest pain. No head ache. Vision is okay. No runny nose or sore throat. No nausea. No abdominal pain. Normal bowel and bladder movements. Currently resting comfortably and hemodynamically stable. Past medical history. As mentioned above Past surgical history. No surgical history on file Social history. Quit smoking 2013. Smoked 0.5 pack a day for 40 years. Alcohol 10 Standard drinks of alcohol per week as per epic. No drug use Family history. Brother alcoholism Father alcoholism. Sister alcoholism. Brother has allergies. Maternal grandfather had prostate cancer. Paternal grandfather had cancer. Mother alcoholism, had cervical cancer. Diabetes. Eye problems. Heart disorder. Hypertension. Bipolar multi personality. Obesity. Thyroid disorder. Admission Exam Per Admitting Provider General- Not in distress Head- Swelling around left orbit seen Eyes- PERRL. ENT- oropharynx clear Neck- supple, no JVD. Lungs- clear to auscultation no wheezing or crackles Heart- regular rhythm; no murmur, no gallop. Abdomen- normal bowel sounds, soft, nontender, no distension Extremities- no pretibial edema. Neuro- alert, oriented PERRL, no facial palsy; no dysarthria; moves extremities. Skin- erythematous rash seen on left side of face with swelling around left orbit. Hives seen on trunk, abdomen and some on legs Discharge Exam Constitutional WD/WN, vitals as above Respiratory normal respiratory effort, lungs clear to auscultation Cardiovascular RRR, no murmur, no edema Skin left side dusky erythema with some peeling dry skin around eyes, no weeping or vesicles noted Left eye with some surrounding swelling, but no impairment in visual field no neurological deficit noted Updated Medication List Medication Instructions Recorded Confirmed Type buspirone 10 mg tablet 5 mg PO BID PRN Anxiety 03/23/25 03/23/25 History hydroxyzine HCl 25 mg tablet 25 mg PO UD PRN Itching 03/23/25 03/23/25 History doxycycline hyclate 100 mg capsule 100 mg PO BID 5 days #10 caps 03/25/25 Rx prednisone 20 mg tablet See Taper PO DAILY #17 tabs 03/25/25 Rx Hospital Stay Data Consultations 03/23/25 23:14 ED Decision to Admit Stat Pending Results Patient Have Any Pending Studies at Discharge: No Discharge Instructions Given to Patient (Per Discharging Provider) You were admitted due to swelling from severe contact dermatitis from poison maría. You noted some subjective improvement with minimal residual itching. It is recommended to continue options like cool, moist compresses, oatmeal baths,and calamine lotion. AntihistaminesAntihistaminesdo nothelp to relieve itching caused by poison maría dermatitis. Some antihistamines make you sleepy while others do not. The ones that make you sleepy [sample brand name Benadryl]) can help you to ignore the itch while sleeping, but the quality of sleeping is worse than normal, and patients scratch just as much during the night as if they were not taking an antihistamine. Steroid pills or injectionsYou developed severe symptom on the face therefore you need steroids to help relieve itching and swelling. Pills are usually given for 14 to 21 days, with the dosage slowly decreased over time. When pills are stopped sooner than 14 days, it is common for the rash and itching to reappear. -Take 60mg when you get home at around lunch time today -Starting tomorrow 03/25/2025 follow this TAPER: 60 mg daily for 2 Days; 40 mg daily for 3 Days; 20 mg daily for 3 Days; 10 mg daily for 3 Days. AntibioticsSkin infections may complicate a poison maría reaction, especially if you scratch your skin. Do not use [id number] topical antibiotic creams; many bacteria are resistant to themandthey are one of the chief causes of allergic contact dermatitis not caused by plants. You will complete a course of doxycycline 100mg two times a day, please start this evening. Total Time Total Time Spent Total Time Spent (In Minutes): 40
[2025-03-25] MEDS: LINEZOLID 600 MG TAB PO SCH (12:14)
== END 2025-03-25 12:42 | disposition home or self-care (01) | DRG 603 ==
LOC: ED 21:15 → SUATTDRO 23:50 → 2W 23:50
DX: L03.213 Periorbital cellulitis; F17.290 Nicotine dependence, other tobacco product, uncomplicated; Z88.2 Allergy status to sulfonamides; Z87.440 Personal history of urinary (tract) infections; L23.7 Allergic contact dermatitis due to plants, except food